=== PATIENT | female | born 1960 | race Caucasian/White ===

== ENCOUNTER 2019-12-04 13:03 | Emergency (ER) | payer BC, MEDICARE ==
[~2019-12-04] VITALS: Ht 160 cm; Wt 139.7 kg
[~2019-12-04 13:03] MED LIST: Z.1.LISINOPRIL-HCT1 PO
--- OUTSIDE RECORDS SUMMARY | 2019-12-04 13:05 | XMS REPORT | Encounter Summary ---
Author Organization Unknown Address [address] [place] [address] Phone [phone] Care Team Providers Care Microsoft Access Developer Name Role Phone Dr. Altaf Wilkerson 3 [phone] Sonya Hassan 82 [phone] Jeannie Schulte MD Facg 107 [phone] Viet Blackwell DPM 120 [phone] Dyllan Rodrigues 130 [phone] Reason for Visit Neuropathy; Bilateral ear pain/problem; sore throat; dizziness; headaches Instructions 1. Vertigo vertigo: care instructions meclizine 25 mg tablet 2. Neuropathy gabapentin 300 mg capsule meloxicam 15 mg tablet tramadol 50 mg tablet 3. Acute sinusitis Levaquin 500 mg tablet fluticasone propionate 50 mcg/actuatio n nasal spray,suspension Tessalon Perles 100 mg capsule 4. Acute bronchospasm ProAir HFA 90 mcg/actuation aerosol in haler 5. Immunization Adacel (Tdap Adolesn/Adult)(PF)2 Lf-(2 .5-5-3-5)-5 Lf/0.5 mL IM syringe Discussion Note: None recorded. Plan of Care Reminders Provider Appointments None recorded. Lab None recorded. Referral None recorded. Procedures None recorded. Surgeries None recorded. Imaging None recorded. Medications Name Start Date diclofenac 1 % topical gel appl,y three times a day. fluocinonide 0.05 % topical cream Apply 100 g 3 times a day by topical route for 15 days. fluticasone propionate 50 mcg/actuation nasal spray,suspension [place] 1 spray twice a day by intranasal route as directed for 14 days. gabapentin 300 mg capsule Take 1 capsule twice a day by oral route for 30 days. Iron (ferrous sulfate) 325 mg (65 mg iro n) tablet Take 1 tablet every day by oral route. Levaquin 500 mg tablet Take 1 tablet every 24 hours by oral route as directed for 10 days. lidocaine-prilocaine 2.5 %-2.5 % topical cream apply three times a day. meclizine 25 mg tablet Take 1 tablet as needed by oral route at bedtime for 14 days. meloxicam 15 mg tablet Take 1 tablet every day by oral route as needed for 90 days. ProAir HFA 90 mcg/actuation aerosol inha ler Inhale 2 puffs every 6-8 hours by inhalation route as needed for 10 days. Tessalon Perles 100 mg capsule Take 1 capsule 3 times a day by oral route as needed for 10 days. tramadol 50 mg tablet Take 1 tablet every day by oral route as needed for 30 days. Vitamin D3 1,000 unit chewable tablet Take 1 tablet every day by oral route. Women's Multivitamin ONE DAILY Medications Administered None recorded. Vitals Height Weight BMI Blood Pressure 5 ft 3.6 in 258.4 lbs 44.9 kg/m2 128/88 mm[Hg] Results Lab Results None recorded. Allergies Code Code System Name Reaction Severity Status Onset Penicillins Hives Moderate Active Problems Name Status Onset Date Source Neuropathy Active Procedures Date Name Performed by 07/22/2018 Orthopedic Surgery Information not avai lable 07/22/2017 Orthopedic Surgery Information not avai lable 07/22/2016 Gastrointestinal Surgery Information not available 07/22/2016 Orthopedic Surgery Information not avai lable 07/22/2015 Colonoscopy Information not avai lable 07/22/2013 Orthopedic Surgery Information not avai lable 07/22/2011 Orthopedic Surgery Information not avai lable 07/22/2008 Total Hysterectomy Information not avai lable 07/22/2008 Procedure on Bladder Information not lex ilable 07/22/2008 Cholecystectomy (Gall Bladder Removal) I nformation not available 07/22/2008 Other Information not avai lable 07/22/2007 Hernia Repair Information not avai lable 07/22/2006 Orthopedic Surgery Information not avai lable 07/22/1986 Tubal Ligation Information not avai lable 07/22/1969 Other Information not avai lable Vaccine List Vaccine Type influenza, recombinant, quadrIvalent,inj ectable, preservative free 04/01/20190.5 mL Tdap 05/27/20190.5 mL Social History Tobacco Smoking Status Never Smoker Past Encounters 05/27/2019 Vertigo; Neuropathy; Acute Sinusitis; Acute Bronchospasm; Immunization Altaf AEvita Wilkerson Mata, MD: [address] [place] [address], Ph. 05/21/2019 Morbid Obesity; Acute Otitis Media; Acute Laryngitis; Acute Bronchitis Ulises Kemp MD: [address] [place] [address], Ph. 04/29/2019 Neuropathy; Contracture of Joint of Toe; Osteoarthritis of Knee; Vaccine Refused by Patient; Body Mass Index 40+ - Severely Obese Altaf Mata MD: [address] [place] [address], Ph. History of Present Illness Chronic Pain Follow-up Reported By: Patient HPI: Analgesia: taking pain medic ation, percentage of pain relief: 60 %. Pain Severity: average pain: 5/10, worst pain: 9/10. ADL Improvements: physically functioning, able to maintain relationships, mood unaffected, sleep patterns undisturbed, overall function improved. Adverse Reactions: no nausea, no vomiting, no constipation, no itching, no mental cloudiness, no sweating, no fatigue, no drowsiness, no sexual dysfunction Note:<div>F/u in pain management. 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 Pain is stable with gabapentin, meloxicam and tramadol. </div><div>{{Yes|No}}</div><div> F/u on acute bronchitis. Pt completed zpak and medrol dose neha. However, she sti ll feels her ears clogged. Concomitantly, nasal congestion, sinus pressure, dizz iness (spinning sensation), wheezing and dry cough. Denies sob or chest pain< /div><div>
</div> Review of Systems:ROS as noted in the HPI Review of Systems None recorded. Physical Exam General Adult Exam (male) Reported By: Patient Constitutional: General Appearance: healthy- appearing, morbidly obese. Level of Distress: NAD Psychiatric: Insight: good judgement. Men latosha Status: active and alert, normal mood, normal affect. Orientation: to time, to place, to person. Memory: recent memory normal, remote memory normal Eyes: Lids and Conjunctivae: non-i njected, no discharge ENMT: Oropharynx: tonsils absent Neck: Neck: supple, trachea midlin e Lungs: Respiratory effort: no dyspn ea. Auscultation: breath sounds normal Cardiovascular: Heart Auscultation: RRR, nor mal S1, normal S2, no murmurs Abdomen: Inspection and Palpation: so ft, non-distended, no tenderness, no guarding Musculoskeletal:: Motor Strength and Tone: nor mal, normal tone. Joints, Bones, and Muscles: normal movement of all extremities, no malalignment; KNEES: Tenderness with palpation in the joint line. No erythema, swelling or warmth. Negative anterior and posterior drawer signs. Normal valgus and varus stress test. Extremities: no edema Neurologic: Cranial Nerves: grossly inta ct. Sensation: grossly intact. Reflexes: DTRs 2+ bilaterally throughout. Coordination and Cerebellum: no tremor Skin: Inspection and palpation: no rash, no lesions"
--- OUTSIDE RECORDS SUMMARY | 2019-12-04 13:05 | XMS REPORT | Encounter Summary ---
Author Organization Unknown Address [address] [place] [address] Phone [phone] Care Team Providers Care Director Sports Name Role Phone Dr. Altaf Wilkerson 3 [phone] Sonya Hassan 82 [phone] Jeannie Schulte MD Facg 107 [phone] Viet Blackwell DPM 120 [phone] Dyllan Rodrigues 130 [phone] Reason for Visit sinus symptoms; Left ear pain/problem; c ough Instructions 1. Morbid obesity learning about healthy weight 2. Acute otitis media 3. Acute laryngitis dexamethasone 4 mg/mL injection soluti on Medrol (Sreedhar) 4 mg tablets in a dose pa ck 4. Acute bronchitis Lincocin 300 mg/mL injection solution Zithromax Z-Sreedhar 250 mg tablet codeine 10 mg-guaifenesin 100 mg/5 mL oral liquid Discussion Note: None recorded. Plan of Care Patient Instructions meds as directed Reminders Provider Appointments Est Patient 05/27/2019 9:15AM Altaf Mata MD Lab None recorded. Referral None recorded. Procedures None recorded. Surgeries None recorded. Imaging None recorded. Medications Name Start Date codeine 10 mg-guaifenesin 100 mg/5 mL or al liquid Take 10 mL every 4 hours by oral route. dexamethasone 4 mg/mL injection solution Inject 2 mL as needed by intramuscular route. diclofenac 1 % topical gel appl,y three times a day. fluocinonide 0.05 % topical cream Apply 100 g 3 times a day by topical route for 15 days. gabapentin 300 mg capsule Take 1 capsule twice a day by oral route. Iron (ferrous sulfate) 325 mg (65 mg iro n) tablet Take 1 tablet every day by oral route. lidocaine-prilocaine 2.5 %-2.5 % topical cream apply three times a day. Lincocin 300 mg/mL injection solution Take 2 mL by injection route. Medrol (Sreedhar) 4 mg tablets in a dose pack as directed meloxicam 15 mg tablet Take 1 tablet every day by oral route as needed for 90 days. tramadol 50 mg tablet Take 1 tablet every day by oral route as needed. Vitamin D3 1,000 unit chewable tablet Take 1 tablet every day by oral route. Women's Multivitamin ONE DAILY Zithromax Z-Sreedhar 250 mg tablet TAKE 2 TABLETS (500 MG) BY ORAL ROUTE ONCE DAILY FOR 1 DAY THEN 1 TABLET (250 MG) BY ORAL ROUTE ONCE DAILY FOR 4 DAYS Medications Administered Name Date Lincocin 300 mg/mL injection solution Take 2 mL by injection route. 8980-30-36V99:34:00 dexamethasone 4 mg/mL injection solution Inject 2 mL as needed by intramuscular route. 3197-61-39W65:35:00 Vitals Height Weight BMI Blood Pressure 5 ft 3.6 in 262 lbs 45.5 kg/m2 124/86 mm[Hg] Results Lab Results None recorded. Allergies [...] recombinant, quadrIvalent,inj ectable, preservative free 04/01/20190.5 mL Social History Tobacco Smoking Status Never Smoker Past Encounters 05/21/2019 Morbid Obesity; Acute Otitis Media; Acute Laryngitis; Acute Bronchitis Ulises Kemp MD: [address] [place] [address], Ph. 04/29/2019 Neuropathy; Contracture of Joint of Toe; Osteoarthritis of Knee; Vaccine Refused by Patient; Body Mass Index 40+ - Severely Obese Altaf Patricia Mata MD: [address] [place] [address], Ph. History of Present Illness Note:5 d h/o hoarseness/L earache/clear mucoid productive cough-otc mucinex beneficial<div>h/o asthma -no meds 2 years</div> Review of Systems:ROS as noted in the HPI Review of Systems None recorded. Physical Exam Upper Respiratory Infection Exam Comprehensive Reported By: Patient Constitutional: General Appearance in no acu te distress; aphonia + Skin: Inspection and palpation: no rash, no lesions, no ulcer, good turgor, no jaundice Head: Sinuses no tenderness Eyes: Pupils EOM intact, PERRLA, c onjunctiva non-injected Ears: Right External auditory phuong l normal appearance, no obstruction, no erythema, no discharge. Left External auditory canal normal appearance, no obstruction, no erythema, no discharge. Right Tympanic membrane mobile with pneumatic otoscopy, pearly stratton, landmarks clear. Left Tympanic membrane: mobile with pneumatic otoscopy, landmarks clear, erythematous Nose: Nasal Skin: no lesion, no la cerations. Nasal Mucosa normal, pink and moist Oral Cavity/Mouth: Lips, teeth, gums normal lip s, normal gums. Oral Mucosa: normal, moist, no lesions. Palate: normal hard palate, normal soft palate. Tongue: normal tongue, no lesion, no edema. Tonsils: normal tonsils, no lesions. Posterior pharynx: erythema Lymph Nodes: Cervical no palpable lymph n ode enlargement, no submandibular adenopathy, no posterior cervical adenopathy, no anterior cervical adenopathy, no supraclavicular adenopathy Neck: Neck symmetrical, trachea mi dline Lungs: Respiratory effort unlabored . Auscultation no rales / crackles, no rhonchi, wheezing expiratory diffusely Cardiovascular System: Auscultation regular rate an d rhythm, no murmur, no rubs, no gallops. Observation/Palpation of peripheral vascular system no varicosities, carotid pulse normal, no edema
--- OUTSIDE RECORDS SUMMARY | 2019-12-04 13:05 | XMS REPORT | Encounter Summary ---
Author Organization Unknown Address [address] [place] [address] Phone [phone] Care Team Providers Care Agricultural Researcher Name Role Phone Dr. Altaf Wilkerson 3 [phone] Sonya Hassan 82 [phone] Jeannie Schulte MD Facg 107 [phone] Viet Blackwell DPM 120 [phone] Dyllan Rodrigues 130 [phone] Reason for Visit Neuropathy; Bilateral ear pain/problem; [...] days. fluticasone propionate 50 mcg/actuation nasal spray,suspension [place] 1 spray twice a day by intranasal [...] Immunization Altaf AEvita Wilkerson Mata, MD: [address] [place] [address], Ph. 05/21/2019 Morbid Obesity; Acute Otitis Media; Acute Laryngitis; Acute Bronchitis Ulises Kemp MD: [address] [place] [address], Ph. 04/29/2019 Neuropathy; Contracture of Joint of Toe; Osteoarthritis of Knee; Vaccine Refused by Patient; Body Mass Index 40+ - Severely Obese Altfa Mata MD: [address] [place] [address], Ph. History of Present Illness Chronic Pain [...] fatigue, no drowsiness, no sexual dysfunction Note:<div>F/u on pain management. Hx of neuropathy in left [...]
--- OUTSIDE RECORDS SUMMARY | 2019-12-04 13:05 | XMS REPORT | Encounter Summary ---
Author Organization Unknown Address [address] [place] [address] Phone [phone] Care Team Providers Care Carbon Printer Name Role Phone Dr. Altaf Wilkerson 3 [phone] Sonya S Ahmed 82 [phone] Jeannie Schulte MD Facg 107 [phone] Viet Blackwell DPM 120 [phone] Dyllan Rodrigues 130 [phone] Reason for Visit neuropathy; Annual Depression Screening; AWV Annual Wellness Visit Female (VFP); Advance Care Plan; other - see typed reason Instructions 1. Adult health examination visual acuity 2. Depression screening learning about depression 3. Neuropathy gabapentin 300 mg capsule tramadol 50 mg tablet learning about healthy weight CBC w/ auto diff 4. Screening for malignant neoplasm of b reast MAMMO, screening, digital, bilateral - *Please call the patient and schedule* 5. Morbid obesity learning about healthy weight CMP, serum or plasma lipid panel, serum TSH, serum or plasma 6. Screening for malignant neoplasm of c olon 7. Influenza vaccination Flublok Quad [id number] (PF) 180 mcg (4 5 mcg x 4)/0.5 mL IM syringe 8. Immunization refused 9. Contracture of joint of toe podiatry referral - PLEASE SEND BACK C ONSULT NOTES TO [phone] 10. Heart valve disorder cardiology referral - *Please call the patient and make an appointment* PLEASE SEND BACK CONSULT NOTES TO [phone] 11. Osteoarthritis of knee orthopedic referral - *Please call the patient and make an appointment* PLEASE SEND BACK CONSULT NOTES TO [phone] Discussion Note: None recorded. Plan of Care Patient Instructions It was good to see you in the office tod ay for your Medicare Annual Wellness Visit. You have been provided some information on healthy nutrition, including a diet rich in fruits and vegetables, minimizing simple carbohydrates, salt, and saturated fats. I want to encourage regular cardiovascular exercise such as walking at least 30 minutes daily, 5 times per week. Please remember to schedule any preventive health measures that we talked about today. You have also been provided education on fall prevention and community- based lifestyle interventions to help reduce health risks and promote healthy living in your Annual Wellness folder. Screening Recommendations 1. Vaccines Pneumonia: Recommended today Influenza: Ordered 2. Mammography Screening: Ordered 3. Colorectal Cancer Screening: Colonoscopy (every 10 years) Next Screening 4. Annual Depression Screening 5. Annual Alcohol Screening 6. Annual Fall Risk Screening 7. Annual Health Risk Assessment It was good to see you in the office today for your Medicare Annual Wellness Visit. You have been provided some information on healthy nutrition, including a diet rich in fruits and vegetables, minimizing simple carbohydrates, salt, and saturated fats. I want to encourage regular cardiovascular exercise such as walking at least 30 minutes daily, 5 times per week. Please remember to schedule any preventive health measures that we talked about today. You have also been provided education on fall prevention and community- based lifestyle interventions to help reduce health risks and promote healthy living in your Annual Wellness folder. Screening Reminders Provider Appointments Est Patient 04/29/2019 9:00AM Altaf Mata MD Return to Office on or around 05/01/2019 Altaf Mata MD Lab CMP, Serum or Plasma 04/01/[address] [facility] Lipid Panel, Serum 04/01/2019 [facility] TSH, Serum or Plasma 04/01/[address] [facility] CBC W/ Auto Diff 04/01/2019 [facility] Referral Podiatry Referral 04/01/2019 Viet benjamin DPDutch Cardiology Referral 04/01/2019 Tommie siegel MD Orthopedic Referral 04/01/2019 Jaleel clark MD Procedures None recorded. Surgeries None recorded. Imaging MAMMO, Screening, Digital, Bilateral 04/01/2019 [facility] Medications Name Start Date gabapentin 300 mg capsule Take 1 capsule twice a day by oral route. Iron (ferrous sulfate) 325 mg (65 mg iro n) tablet Take 1 tablet every day by oral route. tramadol 50 mg tablet Take 1 tablet every day by oral route as needed. Vitamin D3 1,000 unit chewable tablet Take 1 tablet every day by oral route. Women's Multivitamin ONE DAILY Medications Administered None recorded. Vitals Height Weight BMI Blood Pressure 5 ft 3.6 in 259 lbs 45 kg/m2 122/84 mm[Hg] Lab Results Date Name Specimen Result Interpretation Description Value Range Status Address Visual Acuity R Eye Corrected 20/20 [facility]: [address] [facility] L Eye Corrected 20/20 [facility]: [address] [facility] Allergies Code Code System Name Reaction Severity [...] lable 07/22/1968 Other Information not avai lable 04/01/2019 MAMMO, Screening, Digital, Bilateral [facility] [address] [place] [address] (Work [address]) Vaccine List Vaccine Type influenza, recombinant, quadrIvalent,inj ectable, preservative free 04/01/20190.5 mL Social History Tobacco Smoking Status Never Smoker Past Encounters 04/01/2019 Adult Health Examination; Depression Screening; Neuropathy; Screening for Malignant Neoplasm of Breast; Morbid Obesity; Screening for Malignant Neoplasm of Colon; Influenza Vaccination; Immunization Refused; Contracture of Joint of Toe; Heart Valve Disorder; Osteoarthritis of Knee Altaf Mata MD: [address] [place] [address], Ph. History of Present Illness Mini Cog Reported By: Patient Functional Ability: Personal/Social/ Draw a cloc k and write in the numbers in the correct place, and set the time to 10 minutes after 11 o'clock was completed correctly? Yes, 3 word recall: Your nurse or doctor will ask you to remember 3 words. In 5 minutes, they will ask you to repeat them. Patient recalled 3 words Opioid Use Assessment Reported By: Patient Opioid Use Assessment:: Current Use of Opioids : Tra madol (Ultram). 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 Pain is stable with gabapentin and tramadol. Intensity: 5-8/10.
{{Yes|No}}</div> Review of Systems Comprehensive General Adult ROS Reported By: Patient Constitutional: Constitutional: no fever Eyes: Eyes: no vision change Cardiovascular: Cardiovascular: no chest timbo n, no palpitations, no lightheadedness Respiratory: Respiratory: no cough, no wh eezing, no shortness of breath Gastrointestinal: Gastrointestinal: no abdomin al pain, no nausea, no vomiting, no constipation, no diarrhea Musculoskeletal: Musculoskeletal: no muscle a ches, no swelling in the extremities, arthralgias/joint pain Neurologic: Neurologic: no loss of consc iousness, no headaches, numbness Psychiatric: Psych: no depression, no alc ohol abuse, no anxiety, no suicidal thoughts Physical Exam General Adult Exam (male) Reported By: Patient Constitutional: General Appearance: healthy- appearing, morbidly obese. Level of Distress: NAD Psychiatric: Insight: good judgement. Men latosha Status: active and alert, normal mood, normal affect. Orientation: to time, to place, to person. Memory: recent memory normal, remote memory normal Eyes: Lids and Conjunctivae: non-i njected, no discharge Neck: Neck: supple, trachea midlin e Lungs: Auscultation: breath sounds normal Cardiovascular: Heart Auscultation: [...] Cranial Nerves: grossly inta ct. Sensation: grossly intact, monofilament test intact. Coordination and Cerebellum: no tremor Skin: Inspection and palpation: no rash, no lesions"
--- OUTSIDE RECORDS SUMMARY | 2019-12-04 13:05 | XMS REPORT ---
Author Author [facility] t Organization [facility] Address [address] [place] [address] Phone Unavailable Care Team Providers Care Technical Photographer Name Role Phone Unavailable Unavailable Payers Payer Name Policy Type Policy Number Effective Date Expiration Date S ource Problems Condition Name Condition Details Condition Category Status Onset Date Resolution Date Last Treatment Date Treating Clinician Comments Source Neuropathy Neuropathy Problem Active [facility] Allergies, Adverse Reactions, Alerts Allergy Name Allergy Type Status Severity Reaction(s) Onset Date Inacti ve Date Treating Clinician Comments Source Penicillins DA Active SV 2015-04-28 00:00:00 [facility] PENICILLINS Allergy to substance Active Moderate Hives [facility] Social History Smoking Status Start Date Stop Date Source Never Smoker [facility] ractice Medications Ordered Medication Name Filled Medication Name Start Date Stop Da te Current Medication? Ordering Clinician Indication Dosage Frequency Signature (SIG) Comments Components Source diclofenac 1 % topical gel appl,y three times a day. d iclofenac 1 % topical gel appl,y three times a day. No diclofenac 1 % topical gel appl,y three times a day. [facility] Pract ice fluocinonide 0.05 % topical cream Apply 100 g 3 times a day by topical route for 15 days. fluocinonide 0.05 % topical cream Apply 100 g 3 times a day by topical route for 15 days. No 100g TID fluoc inonide 0.05 % topical cream Apply 100 g 3 times a day by topical route for 15 days. [facility] fluticasone propionate 50 mcg/actuation nasal spray,suspension [place] 1 spray twice a day by intranasal route as directed for 14 days. fluticasone propionate 50 mcg/actuation nasal spray,suspension [place] 1 spray twice a day by intranasal route as directed for 14 days. No 1spray(s) BID fluticasone propionate 50 mcg/actuation nasal spray,suspension [place] 1 spray twice a day by intranasal route as directed for 14 days. [facility] gabapentin 300 mg capsule Take 1 capsule twice a day b y oral route for 30 days. gabapentin 300 mg capsule Take 1 capsule twice a day by oral route for 30 days. No 1capsule(s) BID gabapent in 300 mg capsule Take 1 capsule twice a day by oral route for 30 days. [facility] Iron (ferrous sulfate) 325 mg (65 mg iro n) tablet Take 1 tablet every day by oral route. Iron (ferrous sulfate) 325 mg (65 mg iro n) tablet Take 1 tablet every day by oral route. No 1 Q1D Iron (ferrous sulfate) 325 mg (65 mg iron) tablet Take 1 tablet every day by oral route. [facility] Levaquin 500 mg tablet Take 1 tablet viet ry 24 hours by oral route as directed for 10 days. Levaquin 500 mg tablet Take 1 tablet viet ry 24 hours by oral route as directed for 10 days. No 1 Q24H Levaquin 500 mg tablet Take 1 tablet every 24 hours by oral route as directed for 10 days. [facility] lidocaine-prilocaine 2.5 %-2.5 % topical cream apply t hree times a day. lidocaine-prilocaine 2.5 %-2.5 % topical cream apply three times a day. No lidocaine-prilocaine 2.5 %-2.5 % top ical cream apply three times a day. [facility] meclizine 25 mg tablet Take 1 tablet as needed by oral route at bedtime for 14 days. meclizine 25 mg tablet Take 1 tablet as needed by oral route at bedtime for 14 days. No 1 meclizine 2 5 mg tablet Take 1 tablet as needed by oral route at bedtime for 14 days. [facility] meloxicam 15 mg tablet Take 1 tablet viet ry day by oral route as needed for 90 days. meloxicam 15 mg tablet Take 1 tablet viet ry day by oral route as needed for 90 days. No 1 Q1D meloxicam 15 mg tablet Take 1 tablet every day by oral route as needed for 90 days. [facility] ProAir HFA 90 mcg/actuation aerosol inha ler Inhale 2 puffs every 6-8 hours by inhalation route as needed for 10 days. ProAir HFA 90 mcg/actuation aerosol inhaler Inhale 2 puffs every 6-8 hours by inhalation route as needed for 10 days. No 2puff(s) Q7H ProAir HFA 90 m cg/actuation aerosol inhaler Inhale 2 puffs every 6-8 hours by inhalation route as needed for 10 days. [facility] Tessalon Perles 100 mg capsule Take 1 ca psule 3 times a day by oral route as needed for 10 days. Tessalon Perles 100 mg capsule Take 1 ca psule 3 times a day by oral route as needed for 10 days. No 1ca psule(s) TID Tessalon Perles 100 mg capsule Take 1 capsule 3 times a day by oral route as needed for 10 days. [facility] ice tramadol 50 mg tablet Take 1 tablet ever y day by oral route as needed for 30 days. tramadol 50 mg tablet Take 1 tablet ever y day by oral route as needed for 30 days. No 1 Q1D tramadol 50 mg tablet Take 1 tablet every day by oral route as needed for 30 days. [facility] Vitamin D3 1,000 unit chewable tablet Take 1 tablet ev doroteo day by oral route. Vitamin D3 1,000 unit chewable tablet Take 1 tablet every day by oral route. No 1 Q1D Vitamin D3 1,0 00 unit chewable tablet Take 1 tablet every day [facility] route. [facility] Multiv[facility] ONE DAILY Women's Multivitamin ONE DAILY No Women's Multivitamin ONE DAILY [facility] Immunizations Ordered Immunization Name Filled Immunization Name Date Status Comments Source Tdap Tdap 2019-05-27 11:48:00 Completed [facility] influenza, recombinant, quadrIvalent,injectable, prese rvative free influenza, recombinant, quadrIvalent,injectable, preservative free 2019-04-01 10:32:00 Completed [facility] Vital Signs Vital Name Observation Time Observation Value Comments Source BP Diastolic 2019-05-27 00:00:00 88 mm[Hg] [facility] Height 2019-05-27 00:00:00 63.6 [in_i] [facility] BMI (Body Mass Index) 2019-05-27 00:00:00 44.9 kg/m2 [facility] BP Systolic 2019-05-27 00:00:00 128 mm[Hg] [facility] Body Weight 2019-05-27 00:00:00 258.4 [lb_av] [facility] BP Diastolic 2019-05-21 00:00:00 86 mm[Hg] [facility] Height 2019-05-21 00:00:00 63.6 [in_i] [facility] BMI (Body Mass Index) 2019-05-21 00:00:00 45.5 kg/m2 [facility] BP Systolic 2019-05-21 00:00:00 124 mm[Hg] [facility] Body Weight 2019-05-21 00:00:00 262 [lb_av] [facility] BP Diastolic 2019-04-29 00:00:00 82 mm[Hg] [facility] Height 2019-04-29 00:00:00 63.6 [in_i] [facility] BMI (Body Mass Index) 2019-04-29 00:00:00 44.5 kg/m2 [facility] BP Systolic 2019-04-29 00:00:00 128 mm[Hg] [facility] Body Weight 2019-04-29 00:00:00 256.2 [lb_av] [facility] BP Diastolic 2019-04-01 00:00:00 84 mm[Hg] [facility] Height 2019-04-01 00:00:00 63.6 [in_i] [facility] BMI (Body Mass Index) 2019-04-01 00:00:00 45 kg/m2 [facility] BP Systolic 2019-04-01 00:00:00 122 mm[Hg] [facility] Body Weight 2019-04-01 00:00:00 259 [lb_av] [facility] Procedures Procedure Date / Time Performed Performing Clinician Sourc e MAMMO, screening, digital, bilateral 2019-04-01 00:00:00 [facility] Orthopedic Surgery 2018-07-22 00:00:00 [facility] Orthopedic Surgery 2017-07-22 00:00:00 [facility] Gastrointestinal Surgery 2016-07-22 00:00:00 [facility] Orthopedic Surgery 2016-07-22 00:00:00 [facility] Colonoscopy 2015-07-22 00:00:00 [facility] Orth[facility] 2013-07-22 00:00:00 [facility] Orthopedic Surgery 2011-07-22 00:00:00 [facility] Total Hysterectomy 2008-07-22 00:00:00 [facility] amil[facility] Procedure on Bladder 2008-07-22 00:00:00 [facility] Cholecystectomy (Gall Bladder Removal) 2008-07-22 00:00:00 [facility] Other 2008-07-22 00:00:00 [facility] Hernia Repair 2007-07-22 [facility] 2006-07-22 00:00:00 [facility] barcenas [facility] Tubal Ligation 1986-07-22 00:00:00 [facility] Other 1969-07-22 00:00:00 [facility] Practice Encounters Start Date/Time End Date/Time Encounter Type [facility] Care Department Encounter ID Source 2019-05-27 00:00:00 2019-05-27 00:00:00 Altaf longoria MD: [address] [place] [address], Ph. [facility] [id number] [facility] 2019-05-21 00:00:00 2019-05-21 00:00:00 Ulises Kemp MD: [address] [place] [address], Ph. [facility] [id number] [facility] 2019-04-29 00:00:00 2019-04-29 00:00:00 Altaf longoria MD: [address] [place] [address], Ph. [facility] [id number] [facility] 2019-04-01 00:00:00 2019-04-01 00:00:00 Altaf longoria MD: [address] [place] [address], Ph. [facility] [id number] [facility] Results Test Description Test Time Test Comments Results Result Comments Source SCR MAMM BILATERAL JULIET CAD DIGITAL 2019-04-21 08:59:04 - SCR MAMM BILATERAL JULIET CAD DIGITALBILATERAL DIGITAL SCREENING MAMMOGRAM 3D/2D WITH CAD: 04/18/2019CLINICAL: Asymptomatic. Digital breast tomosynthesis was performed in addition to routine CC and MLO views. Current mammographic images were evaluated by either a [employer] M-Vu or a [email or web address] ImageChecker CAD (computer aided detection system). Comparison is made to exams dated 03/26/2018 mammogram, 2014 mammogram - [facility], and 07/02/2008 mammogram - [facility]. The tissue of both breasts is predominantly fatty. There are benign calcifications in both breasts. No suspicious mass, architectural distortion, malignant type calcification, or lymph node abnormality detected. Breast architecture is stable compared to prior exams.IMPRESSION: BENIGNThere is no mammographic evidence of malignancy. Resume annual screening mammography in one year. Abiel Hyde M.D. ss/penrad:04/21/2019 08:59:04 Ukrainian Folk Arts Instructor: Faye MCINTOSH, [facility] sent: BIRADS 1-2 Normal Mammogram BI-RADS: 2 Benign
--- OUTSIDE RECORDS SUMMARY | 2019-12-04 13:05 | XMS REPORT | Encounter Summary ---
Author Organization Unknown Address [address] [place] [address] Phone [phone] Care Team Providers Care Sorter Packer Name Role Phone Dr. Altaf Wilkerson 3 [phone] Sonya S med 82 [phone] Jeannie Schulte MD Facg 107 [phone] Viet Blackwell DPM 120 [phone] Dyllan Rodrigues 130 [phone] Reason for Visit lab follow-up; other - see typed reason Instructions 1. Neuropathy gabapentin 300 mg capsule tramadol 50 mg tablet meloxicam 15 mg tablet 2. Contracture of joint of toe 3. Osteoarthritis of knee 4. Vaccine refused by patient 5. Body mass index 40+ - severely obese body mass index: care instructions learning about healthy weight Discussion Note: None recorded. Plan of Care Reminders Provider Appointments Est Patient 05/27/2019 9:15AM [...] topical cream apply three times a day. meloxicam 15 mg tablet Take 1 tablet every day by oral route as needed for 90 days. tramadol 50 mg tablet Take 1 tablet every day by oral route as needed. Vitamin D3 1,000 unit chewable tablet Take 1 tablet every day by oral route. Women's Multivitamin ONE DAILY Medications Administered None recorded. Vitals Height Weight BMI Blood Pressure 5 ft 3.6 in 256.2 lbs 44.5 kg/m2 128/82 mm[Hg] Results Lab Results Date Name Specimen Result Interpretation Description Value Range Status Address 04/01/2019 CBC W/ Auto Diff Wbc 7.30 x10*3/L 3.9 8-10.04 x10*3/L Final [facility] Laboratory: [address] [place] Rbc 5.04 10*12/L 3.93-5.22 10*12/L Final [facility]: [address] [place] Hemoglobin 15.40 g/dL 11.20-15.70 g/ dL Final [facility]: [address] [place] High Hematocrit 47.6 % 34.1-44.9 % Final [facility]: [address] [place] Mcv 94.4 fL 80.0-100.0 fL Final [facility] [address] [facility] 30.6 pg 25.6-32.2 pg Final [facility] Laboratory: [address] [place] Mchc 32.4 g/dL 32.2-35.5 g/dL Final [facility]: [address] [place] RDW-SD 43.3 fL 36.4-46.3 fL Final [facility]: [address] [facility] [facility] Platelet Count 262.0 k/uL 182.0-369. 0 k/uL Final [facility]: [address] [place] Mpv 10.1 fL 7.5-11.5 fL Final [facility] [address] [facility] Neut% 52.5 % 34.0-71.1 % Final [facility] [address] [facility] [facility] Lymph% 37.1 % 19.3-51.7 % Final [facility]: [address] [facility] Mon% 7.8 % 4.7-12.5 % Final [facility] [address] [facility] Eos% 2.2 % 0.7-5.8 % Final [facility] [address] [facility] Baso% 0.4 % 0.1-1.2 % Final [facility] Laboratory: [address] [facility], [place] Neut# 3.8 x10*3/L 1.6-6.1 x10*3/L Final [facility]: [address] [place] [address] Lymph# 2.7 x10*3/L 1.2-3.7 x10*3/L Final [facility]: [address] [facility] [place] Mon# 0.6 x10*3/L 0.2-0.9 x10*3/L [facility] Laboratory: [address] [place] [address], [place] Eos# 0.16 x10*3/L 0.04-0.36 x10*3/ L Final [facility]: [address] [place] [address] Baso# 0.03 x10*3/L 0.01-0.08 x10*3/ L Final [facility]: [address] [place] [address] 04/01/2019 CMP, Serum or Plasma Alt 15 U/L 0-55 U /L Final [facility]: [address] Ast 21 U/L 5-34 U/L Final [facility]: [address] Bun 17.8 mg/dL 9.8-25.0 mg/dL Final [facility]: [address] Alk Phos 88 unit/L 40-150 unit/L Fin [facility] Laboratory: [address] Glucose 86 mg/dL 70-99 mg/dL Final [facility]: [address] Albumin 3.9 g/dL 3.4-5.1 g/dL Final [facility]: [address] Creatinine 0.84 mg/dL 0.57-1.11 mg/d L Final [facility]: [address] eGFR Non- >60 mL/mi n/1.73m2 Final [facility]: [address] Total Bilirubin 1.1 mg/dL 0.2-1.2 mg /dL Final [facility]: [address] eGFR - >60 mL/min/1 .73m2 [facility] Laboratory: [address] [place] [address], [place] Sodium 143 mEq/L 135-145 mEq/L [facility] Laboratory: [address] [place] [address], [place] Potassium 4.4 mEq/L 3.5-5.1 mEq/L [facility] Laboratory: [address] [place] [address], [place] Chloride 109 mmol/L 98-110 mmol/L [facility] Laboratory: [address] [place] [address], [place] Total Protein 6.9 g/dL 6.1-8.2 g/dL [facility] Laboratory: [address] Calcium 9.5 mg/dL 8.6-10.4 mg/dL [facility] Laboratory: [address] [place] [address], [place] Co2 27.0 mmol/L 20.0-32.0 mmol/L [facility] Laboratory: [address] Anion Gap 7 calc Final [facility] Laboratory: [address] [place] [address], [place] 04/01/2019 Lipid Panel, Serum Low Hdl 48 mg/dL [facility] Laboratory: [address] Triglyceride 143 mg/dL 0-150 mg/dL [facility] Laboratory: [address] VLDL (Calculated) 29 mg/dL [facility] Laboratory: [address] cholesterol/HDL Ratio 3.9 mg/dL [facility] Laboratory: [address] non-HDL Cholesterol (Calculated) 139 mg/dL 0-160 mg/dL [facility] Laboratory: [address] Cholesterol 187 mg/dL 0-200 mg/dL [facility] Laboratory: [address] LDL (Calculated) 110 mg/dL 0-130 mg/ dL [facility] Laboratory: [address] [place] [address], [place] 04/01/2019 TSH, Serum or Plasma Tsh 0.685 uI U/mL 0.350-4.940 uIU/mL [facility] Laboratory: [address] [facility] [address], [place] Visual Acuity R Eye Corrected 20/20 [facility]: [address] [facility] L Eye Corrected 20/20 [facility]: [address] [facility] Allergies Code Code System Name Reaction Severity [...] lable 04/01/2019 MAMMO, Screening, Digital, Bilateral [facility] [address] [facility] [address] [place] [address] (Work Place) Vaccine List Vaccine Type influenza, recombinant, quadrIvalent,inj ectable, preservative free 04/01/20190.5 mL Social History Tobacco Smoking Status Never Smoker Past Encounters 04/29/2019 Neuropathy; Contracture of Joint of Toe; Osteoarthritis of Knee; Vaccine Refused by Patient; Body Mass Index 40+ - Severely Obese Altaf Mata MD: [address] [place] [id number], Ph. 04/01/2019 Adult Health Examination; Depression Screening; Neuropathy; Screening for Malignant Neoplasm of Breast; Morbid Obesity; Screening for Malignant Neoplasm of Colon; Influenza Vaccination; Immunization Refused; Contracture of Joint of Toe; Heart Valve Disorder; Osteoarthritis of Knee Altaf Mata MD: [address] [place] [address], Ph. History of Present Illness Chronic Pain [...] no fatigue, no drowsiness, no sexual dysfunction Opioid Use Assessment Reported By: Patient Opioid Use Assessment:: Current Use of Opioids : Tra madol (Ultram). Has the patient tried other pain management modalities: yes Note:<div>F/u on pain management. 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 Pain is stable with gabapentin and tramadol. </div><div>{{Yes|No}}</div> Review of Systems Comprehensive General Adult ROS Reported By: Patient Cardiovascular: Cardiovascular: no chest timbo n, no [...] Distress: NAD Psychiatric: Insight: good judgement. Men ltaosha Status: active and alert, normal mood, normal [...]
--- OUTSIDE RECORDS SUMMARY | 2019-12-04 13:06 | XMS REPORT | Encounter Summary ---
Author Organization Unknown Address [address] [place] [address] Phone [phone] Care Team Providers Care Creative Arts Music Therapist Name Role Phone Dr. Altaf Wilkerson 3 [phone] Sonya Hassan 82 [phone] Jeannie Schulte MD Facg 107 [phone] Viet Blackwell DPM 120 [phone] Dyllan Rodrigues 130 [phone] Reason for Visit Neuropathy; Bilateral ear pain/problem; [...] days. fluticasone propionate 50 mcg/actuation nasal spray,suspension [place] 1 spray twice a day by intranasal [...] Immunization Altaf AEvita Wilkerson Mata, MD: [address] [place] [address], Ph. 05/21/2019 Morbid Obesity; Acute Otitis Media; Acute Laryngitis; Acute Bronchitis Ulises Kemp MD: [address] [place] [address], Ph. 04/29/2019 Neuropathy; Contracture of Joint of Toe; Osteoarthritis of Knee; Vaccine Refused by Patient; Body Mass Index 40+ - Severely Obese Altaf Mata MD: [address] [place] [address], Ph. History of Present Illness Chronic Pain [...] and Conjunctivae: non-i njected, no discharge ENMT: Ears: TM bulging. Nose: sinu s tenderness, nasal discharge--purulent. Oropharynx: no exudates, erythema, tonsils absent Neck: Neck: supple, trachea midlin e. Lymph Nodes: no cervical LAD Lungs: Respiratory effort: no dyspn ea. Auscultation: [...]
[2019-12-04] MEDS ORDERED: ACETAMINOPHEN 325 MG TAB PO ONE (14:00)
[2019-12-04 14:41] LABS: STREPTOCOCCUS GRP A ANTIGEN NEGATIVE (NEGATIVE)
[2019-12-04 14:44] LABS: INFLUENZAE A&B ANTIGEN (RAPID) NEGATIVE (NEGATIVE)
[2019-12-04 15:05] LABS: BACTERIA,URINE MODERATE /HPF; BILIRUBIN,URINE NEGATIVE (NEGATIVE); CLARITY,URINE CLOUDY (CLEAR); COLOR,URINE YELLOW (YELLOW); EPITHELIAL CELLS,URINE FEW /LPF; KETONES,URINE TRACE (NEGATIVE); LEUKOCYTE ESTERASE ,URINE MODERATE (NEGATIVE); NITRITE,URINE POSITIVE (NEGATIVE); PROTEIN,URINE DIPSTICK 1+ (NEGATIVE); RBC,URINE 0-5 /HPF (0-5); URINE UROBILINOGEN 1 mg/dL (0.2 - 1); WBC,URINE (MAN) >50 /HPF (0-5)
--- NOTE | 2019-12-04 15:28 | Emergency Department Note ---
History of Present Illnes History of Present Illness Chief Complaint: General Medicine Complaints History of Present Illness This is a 59 year old female .STATES THAT SHE HAS BEEN HAVING FEVER FOR THE LAST FEW DAYS, HAD BURNING WITH URINATION A WEEK AGO X2 INSTANCES AND THEN RESOLVED ALSO HERE FOR A PAIN ON THE INSIDE OF THE LEFT THIGH THAT SHE FEELS IS A CLOT. sent to ed for eval from pcp to r/o dvt uri uti Historian: Patient Arrival Mode: Car Cloth Bleaching Range Tender Required: No Onset (how long ago): day(s) (several dys ) Location: c/o pain to left inguinal medial thigh Radiation: non-radiation Severity: moderate Onset quality: sudden Duration (how long): day(s) (several days ) Timing of current episode: constant Progression: worsening Context: recent illness, other (c/o uri sx cough fever sinus congstion for several days ) Relieving factors: none Exacerbating factors: none Associated symptoms: fever/chills Treatments prior to arrival: antipyretic, other (last dose tylenol 730 am ) Past Medical/Family History Physician Review I have reviewed the patient's past medical and family history. Any updates have been documented here. Past Medical History * None Other Surgery * shoulder surgery, lap band surgery, hernia surgery Past Medical History Recent Fever: Yes Clinical Suspicion of Infectio: Yes New/Unexplained Change in Ment: No Past Medical History: None Other Surgery: shoulder surgery, lap band surgery, hernia surgery Social History Smoking Cessation: Never Smoker Alcohol Use: None Any Illegal Drug Use: No TB Exposure/Symptoms: No Physically hurt or threatened: No Family History Family history of heart diseas: No Other family history brother from blood clot to leg Other Any Pre-Existing Lines (PICC,: No Review of Systems Review of Systems Constitutional: chills, fever EENTM: nose congestion, throat pain (scratchy throat ) Cardiovascular: no symptoms Respiratory: cough Gastrointestinal: no symptoms Genitourinary: dysuria Musculoskeletal: no symptoms Neurological: no symptoms Psychological: no symptoms Endocrine: no symptoms Hematological/Lymphatic: no symptoms Review of other systems All other systems reviewed and negative. pt c.o left inner upper thigh inguinal area ttp pt and pt's pcp concern for dvt sent to ed for eval Physical Exam Related Data Allergies: Uncoded Allergies: BERRIES, COCONUT (Allergy, Mild, rash and hives, 12/08/10) PCN (Allergy, Unknown, rash, 12/04/19) Triage Vital Signs Vital Signs Date Time Temp Pulse Resp B/P (MAP) Pulse Ox O2 Delivery O2 Flow Rate FiO2 12/04/19 13:41 102.5 92 16 123/80 95 Vital signs reviewed: Yes Physical Exam CONSTITUTIONAL Constitutional: well-developed, well-nourished, obese HENT HENT: normocephalic, atraumatic, nose normal, erythema (throat mild redness ); tonsillar excudate HENT L/R: left ext ear normal, right ext ear normal EYES Eyes: conjunctivae normal, EOM normal NECK Neck: ROM normal PULMONARY Pulmonary: effort normal, breath sounds normal CARDIOVASCULAR Cardiovascular: regular rhythm, capillary refill normal, normal rate GASTROINTESTINAL Abdominal: soft, nontender GENITOURINARY Genitourinary: exam deferred, other (c/o dysuria several days ago - pt&pt's pcp concern pt may have uti) SKIN MUSCULOSKELETAL Musculoskeletal: ROM normal NEUROLOGICAL Neurological: alert, oriented x 3, no gross motor or sensory deficits PSYCHOLOGICAL Psychological: mood/affect normal, judgement normal Results Laboratory Laboratory Laboratory Tests Test 12/04/19 14:00 12/04/19 13:40 Influenza Virus Types A,B Antigen Negative (NEGATIVE) Group A Streptococcus Screen Negative (NEGATIVE) Urine Color Yellow (YELLOW) Urine Clarity Cloudy (CLEAR) Urine pH 6 (5 - 7) Urine Specific Cocoa 1.025 (1.010-1.025) Urine Protein 1+ (NEGATIVE) Urine Glucose (UA) Negative (NEGATIVE) Urine Ketones Trace (NEGATIVE) Urine Blood Moderate (NEGATIVE) Urine Nitrite Positive (NEGATIVE) Urine Bilirubin Negative (NEGATIVE) Urine Urobilinogen 1 mg/dL (0.2 - 1) Urine Leukocyte Esterase Moderate (NEGATIVE) Urine RBC 0-5 /HPF (0-5) Urine WBC >50 /HPF (0-5) Urine Epithelial Cells Few /LPF (NONE) Urine Bacteria Moderate /HPF (NONE) Imaging Imaging results reviewed: Yes Impressions IMPRESSION: No focal pneumonia or pulmonary edema. Signed by: Jesi Navarro MD on 12/04/2019 4:24 PM Dictated By: JESI NAVARRO MD [id number] Transcribed By: LARS on 12/04/191623 COPY TO: CARLOS GRANDE CUSTOMER SOLUTIONS COORDINATOR~ Imaging Comments us left leg neg for DVT Critical Care Time Subsequent provider I assumed direction of critical care for this patient from another provider of my specialty. Assessment & Plan Assessment & Plan Problems: (1) Upper respiratory infection (2) Urinary tract infection (3) Fever Assessment & Plan 1. tylenol and motrin as needed for fever 2. increase oral fluids 3. return to ed as needed 4. follow up with pcp in 1-2 days without fail 5. rx omnicef Depart Disposition: HOME, SELF-CARE Last Vital Signs Date Time Temp Pulse Resp B/P (MAP) Pulse Ox O2 Delivery O2 Flow Rate FiO2 12/04/19 13:41 102.5 92 16 123/80 95 Home Meds Reported Medications Lisinopril/Hydrochlorothiazide (Lisinopril-Hctz 20-12.5 Mg Tab) 1 Each Tablet, 1 PO DAILY 12/08/10 Medications in the ED CARLOS Ovalles NP December 04, 2019 13:59
[2019-12-04] MEDS ORDERED: CEFTRIAXONE SOD 1 GM VIAL IM SCH (15:50)
--- NOTE | 2019-12-04 16:27 | Diagnostic Imaging Report ---
EXAMINATION: CHEST 2 VIEWS INDICATION: Fever, urinary tract infection COMPARISON: None FINDINGS: LINES/TUBES:None LUNGS:The lungs are well-inflated. No focal consolidation or pulmonary edema. PLEURA:No pleural effusion or pneumothorax. MEDIASTINUM:The cardiomediastinal silhouette appears normal in size and shape. BONES/SOFT TISSUES:No acute osseous injury. ABDOMEN:No free air under the diaphragm. IMPRESSION: No focal pneumonia or pulmonary edema. Signed by: Janeth Navarro MD on 12/04/2019 4:24 PM
== END 2019-12-04 16:54 | disposition home or self-care (01) ==
LOC: ER 13:03
DX: R50.9 Fever, unspecified (principal); J06.9 Acute upper respiratory infection, unspecified; R30.0 Dysuria; N39.0 Urinary tract infection, site not specified; M79.652 Pain in left thigh
CPT/HCPCS: 71046; 81001; 83518; 87070; 87086; 87186; 87400; 93971; 99284; J0696

== ENCOUNTER 2019-12-05 12:17 | Inpatient (IN) | payer MEDICARE, OTHER ==
[~2019-12-05] VITALS: Ht 162.6 cm; Wt 114.3 kg
--- OUTSIDE RECORDS SUMMARY | 2019-12-05 12:20 | XMS REPORT ---
Author Author [facility] t Organization [facility] Address [address] [place] [address] Phone Unavailable Care Team Providers Care Blood Bank Technician Name Role Phone Feliciano CARSON Attphyfeliciano Unavailable Payers Payer Name Policy Type Policy Number Effective Date Expiration Date S ource Problems Condition Name Condition Details Condition Category Status Onset Date Resolution Date Last Treatment Date Treating Clinician Comments Source Neuropathy Neuropathy Problem Active [facility] Allergies, Adverse Reactions, Alerts Allergy Name Allergy Type Status Severity Reaction(s) Onset Date Inacti ve Date Treating Clinician Comments Source Penicillins DA Active SV 2015-04-28 00:00:00 [facility] PENICILLINS Allergy to substance Active Moderate Hives [facility] Social History Smoking Status Start Date Stop Date Source Never Smoker [facility] Medications Ordered Medication Name Filled Medication Name Start Date Stop Da te Current Medication? Ordering Clinician Indication Dosage Frequency Signature (SIG) Comments Components Source diclofenac 1 % topical gel appl,y three times a day. d iclofenac 1 % topical gel appl,y three times a day. No diclofenac 1 % topical gel appl,y three times a day. [facility] ice fluocinonide 0.05 % topical cream Apply 100 g 3 times a day by topical route for 15 days. fluocinonide 0.05 % topical cream Apply 100 g 3 times a day by topical route for 15 days. No 100g TID fluoc inonide 0.05 % topical cream Apply 100 g 3 times a day by topical route for 15 days. [facility] fluticasone propionate 50 mcg/actuation nasal spray,suspension Reasnor 1 spray twice a day by intranasal route as directed for 14 days. fluticasone propionate 50 mcg/actuation nasal spray,suspension Reasnor 1 spray twice a day by intranasal route as directed for 14 days. No 1spray(s) BID fluticasone propionate 50 mcg/actuation nasal spray,suspension Reasnor 1 spray twice a day by intranasal route as directed for 14 days. [facility] gabapentin 300 mg capsule Take 1 capsule twice a day b y oral route for 30 days. gabapentin 300 mg capsule Take 1 capsule twice a day by oral route for 30 days. No 1capsule(s) BID gabapent in 300 mg capsule Take 1 capsule twice a day by oral route for 30 days. [facility] Iron (ferrous sulfate) 325 mg (65 mg iro n) tablet Take 1 tablet every day by oral route. Iron (ferrous sulfate) 325 mg (65 mg iro n) tablet Take 1 tablet every day by oral route. No 1 Q1D Iron (ferrous sulfate) 325 mg (65 mg iron) tablet Take 1 tablet every day by oral route. [facility] Levaquin 500 mg tablet Take 1 tablet viet ry 24 hours by oral route as directed for 10 days. Levaquin 500 mg tablet Take 1 tablet viet ry 24 hours by oral route as directed for 10 days. No 1 Q24H Levaquin 500 mg tablet Take 1 tablet every 24 hours by oral route as directed for 10 days. [facility] lidocaine-prilocaine 2.5 %-2.5 % topical cream apply t hree times a day. lidocaine-prilocaine 2.5 %-2.5 % topical cream apply three times a day. No lidocaine-prilocaine 2.5 %-2.5 % top ical cream apply three times a day. [facility] meclizine 25 mg tablet Take 1 tablet as needed by oral route at bedtime for 14 days. meclizine 25 mg tablet Take 1 tablet as needed by oral route at bedtime for 14 days. No 1 meclizine 2 5 mg tablet Take 1 tablet as needed by oral route at bedtime for 14 days. [facility] meloxicam 15 mg tablet Take 1 tablet viet ry day by oral route as needed for 90 days. meloxicam 15 mg tablet Take 1 tablet viet ry day by oral route as needed for 90 days. No 1 Q1D meloxicam 15 mg tablet Take 1 tablet every day by oral route as needed for 90 days. [facility] ProAir HFA 90 mcg/actuation aerosol inha ler [...] inhalation route as needed for 10 days. [facility] Tessalon Perles 100 mg capsule Take 1 [...] oral route as needed for 10 days. [facility] ice tramadol 50 mg tablet Take 1 tablet ever y day by oral route as needed for 30 days. tramadol 50 mg tablet Take 1 tablet ever y day by oral route as needed for 30 days. No 1 Q1D tramadol 50 mg tablet Take 1 tablet every day by oral route as needed for 30 days. [facility] Vitamin D3 1,000 unit chewable tablet Take 1 tablet ev doroteo day by oral route. Vitamin D3 1,000 unit chewable tablet Take 1 tablet every day by oral route. No 1 Q1D Vitamin D3 1,0 00 unit chewable tablet Take 1 tablet every day by oral route. [facility] Multivitamin ONE DAILY Women's Multivitamin ONE DAILY No Women's Multivitamin ONE DAILY [facility] Immunizations Ordered Immunization Name Filled Immunization Name Date Status Comments Source Tdap Tdap 2019-05-27 11:48:00 Completed [facility] influenza, recombinant, quadrIvalent,injectable, prese rvative free influenza, recombinant, quadrIvalent,injectable, preservative free 2019-04-01 10:32:00 Completed [facility] Vital Signs Vital Name Observation Time Observation Value Comments Source BP Diastolic 2019-05-27 00:00:00 88 mm[Hg] [facility] Height 2019-05-27 00:00:00 63.6 [in_i] [facility] BMI (Body Mass Index) 2019-05-27 00:00:00 44.9 kg/m2 [facility] BP Systolic 2019-05-27 00:00:00 128 mm[Hg] [facility] Body Weight 2019-05-27 00:00:00 258.4 [lb_av] [facility] BP Diastolic 2019-05-21 00:00:00 86 mm[Hg] [facility] Height 2019-05-21 00:00:00 63.6 [in_i] [facility] BMI (Body Mass Index) 2019-05-21 00:00:00 45.5 kg/m2 [facility] BP Systolic 2019-05-21 00:00:00 124 mm[Hg] [facility] Body Weight 2019-05-21 00:00:00 262 [lb_av] [facility] BP Diastolic 2019-04-29 00:00:00 82 mm[Hg] [facility] Height 2019-04-29 00:00:00 63.6 [in_i] [facility] BMI (Body Mass Index) 2019-04-29 00:00:00 44.5 kg/m2 [facility] BP Systolic 2019-04-29 00:00:00 128 mm[Hg] [facility] Body Weight 2019-04-29 00:00:00 256.2 [lb_av] [facility] BP Diastolic 2019-04-01 00:00:00 84 mm[Hg] [facility] Height 2019-04-01 00:00:00 63.6 [in_i] [facility] BMI (Body Mass Index) 2019-04-01 00:00:00 45 kg/m2 [facility] BP Systolic 2019-04-01 00:00:00 122 mm[Hg] [facility] Body Weight 2019-04-01 00:00:00 259 [lb_av] [facility] Procedures Procedure Date / Time Performed Performing Clinician Sourc e MAMMO, screening, digital, bilateral 2019-04-01 00:00:00 [facility] Orthopedic Surgery 2018-07-22 00:00:00 [facility] Orthopedic Surgery 2017-07-22 00:00:00 [facility] Gastrointestinal Surgery 2016-07-22 00:00:00 [facility] Orthopedic Surgery 2016-07-22 00:00:00 [facility] Colonoscopy 2015-07-22 00:00:00 [facility] Orthopedic Surgery 2013-07-22 00:00:00 [facility] Orthopedic Surgery 2011-07-22 00:00:00 [facility] Total Hysterectomy 2008-07-22 00:00:00 [facility] Procedure on Bladder 2008-07-22 00:00:00 [facility] Cholecystectomy (Gall Bladder Removal) 2008-07-22 00:00:00 [facility] Other 2008-07-22 00:00:00 [facility] Hernia Repair 2007-07-22 00:00:00 [facility] Orthopedic Surgery 2006-07-22 00:00:00 [facility] Tubal Ligation 1986-07-22 00:00:00 [facility] Other 1969-07-22 00:00:00 [facility] Encounters Start Date/Time End Date/Time Encounter Type Admission Type [facility] Care Department Encounter ID Source 2019-05-27 00:00:00 2019-05-27 00:00:00 Altaf longoria MD: [address] [place] [address], [facility] [id number] [facility] 2019-05-21 00:00:00 2019-05-21 00:00:00 Ulises Kemp MD: [id number] [place] [address], [facility] [id number] [facility] 2019-04-29 00:00:00 2019-04-29 00:00:00 Altaf longoria MD: [address] [place] [address], [facility] [id number] [facility] 2019-04-01 00:00:00 2019-04-01 00:00:00 Altaf longoria MD: [address] [place] [address], [facility]. [facility] - [facility] - [facility] [id number] [facility] Results Test Description Test Time Test Comments Results Result Comments Source CHEST 2 VIEWS 2019-12-04 16:23:00 [place] [address] Patient Name: HARDEEP PENA MR #: [id number] : 1960 Age/Sex: 59/F Req #: [id number] Adm Physician: Ordered by: CARLOS GRANDE CURATOR OF PHOTOGRAPHY AND PRINTS Report #: [id number] Location: ER Room/Bed: Procedure: [id number] DX/CHEST 2 VIEWS Exam Date: 12/04/19 Exam Time: 1602 REPORT STATUS: Signed EXAMINATION: CHEST 2 VIEWS INDICATION: Fever, urinary tract infection COMPARISON: None FINDINGS: LINES/TUBES:None LUNGS:The lungs are well-inflated. No focal consolidation or pulmonary edema. PLEURA:No pleural effusion or pneumotho rax. MEDIASTINUM:The cardiomediastinal silhouette appears normal in size and shape. BONES/SOFT TISSUES:No acute osseous injury. ABDOMEN:No free air under the diaphragm. IMPRESSION: No focal pneumonia or pulmonary edema. Signed by: Jesi Navarro MD on 12/04/2019 4:24 PM Dictated By: JESI NAVARRO MD 23 Transcribed By: LARS on 12/04/191623 COPY TO: CARLOS GRANDE CURATOR OF PHOTOGRAPHY AND PRINTS SCR MAMM BILATERAL JULIET CAD DIGITAL 2019-04-21 08:59:04 - SCR MAMM BILATERAL JULIET CAD DIGITALBILATERAL DIGITAL SCREENING MAMMOGRAM 3D/2D WITH CAD: 04/18/2019CLINICAL: Asymptomatic. Digital breast tomosynthesis was performed in addition to routine CC and MLO views. Current mammographic images were evaluated by either a [employer] M-Vu or a [employer] ImageChecker CAD (computer aided detection system). Comparison is made to exams dated 03/26/2018 mammogram, 2014 mammogram - [facility], and 07/02/2008 mammogram - [facility]. The tissue of both breasts is predominantly fatty. There are benign calcifications in both breasts. No suspicious mass, architectural distortion, malignant type calcification, or lymph node abnormality detected. Breast architecture is stable compared to prior exams.IMPRESSION: BENIGNThere is no mammographic evidence of malignancy. Resume annual screening mammography in one year. Abiel zabala/celestino:04/21/2019 08:59:04 Sash Finisher: Faye MCINTOSH, [facility]: BIRADS 1-2 Normal Mammogram BI-RADS: 2 Benign
[2019-12-05] MEDS ORDERED: VANCOMYCIN 1GM/NS 250 ML 250 ML IV STA (12:31)
[2019-12-05] MEDS ORDERED: SODIUM CHLORIDE 0.9% 1000ML 1,000 ML IV STA (12:31)
[2019-12-05] MEDS ORDERED: CEFEPIME 1GM/NS 0.9% 50 ML 50 ML IV STA (12:31)
[2019-12-05] MEDS ORDERED: ONDANSETRON HCL INJ 2MG/ML 2ML 2 MG/ML VIAL IV NR (12:31)
[2019-12-05] MEDS ORDERED: MORPHINE SULFATE 5 MG/ML VIAL IV ONE (12:45)
[2019-12-05 12:57] LABS: BASOPHILS % 0.3 % (0.0-1.0); HEMATOCRIT 44.1 % (34.2-44.1); HEMOGLOBIN 14.5 g/dL (12.0-16.0); LYMPHOCYTES # (AUTO) 1.6 (1.0-3.2); LYMPHOCYTES % 16.7 % (18.0-39.1); MEAN CORPUSCULAR HEMOGLOBIN 30.3 pg (28-32); MEAN CORPUSCULAR HGB CONC 32.9 g/dL (31-35); MEAN CORPUSCULAR VOLUME 92.1 fL (81-99); MONOCYTES # (AUTO) 0.7 (0.2-0.8); MONOCYTES % 7.5 % (4.4-11.3); NEUTROPHILS % 75.1 % (38.7-80.0); PLATELET COUNT 174 x10e3/uL (140-360); RED BLOOD COUNT 4.79 x10e6/uL (3.6-5.1); RED CELL DISTRIBUTION WIDTH 12.4 % (11.7-14.4)
[2019-12-05] MEDS ORDERED: MORPHINE SULFATE INJ 4 MG/ML INJ 1ML ONE (13:05)
[2019-12-05 13:27] LABS: ALANINE AMINOTRANSFERASE 108 IU/L (0-55); ALBUMIN/GLOBULIN RATIO 0.8 (0.8-2.0); ALKALINE PHOSPHATASE 97 IU/L (40-150); ANION GAP 13.4 mmol/L (8-16); BLOOD UREA NITROGEN 12 mg/dL (7-26); BUN/CREATININE RATIO 15 (6-25); CALCIUM 9.1 mg/dL (8.4-10.2); CARBON DIOXIDE 22 mmol/L (22-29); CHLORIDE 108 mmol/L (98-107); CREATININE, SERUM 0.78 mg/dL (0.57-1.11); EST GLOMERULAR FILTRATION RATE > 60 ML/MIN (60-); GLUCOSE 115 mg/dL (74-118); POTASSIUM 3.4 mmol/L (3.5-5.1); SODIUM 140 mmol/L (136-145)
--- NOTE | 2019-12-05 14:07 | NUR ---
borders marked and dated to left lower leg. +dp and cap refill < 2 seconds.
[2019-12-05] MEDS ORDERED: IOPAMIDOL 370 MG/ML 200 ML INFUS..BTL INJ ONE (14:48)
[2019-12-05] MEDS ORDERED: SODIUM CHLORIDE 0.9% 50ML 50 ML ONE (14:48)
--- OUTSIDE RECORDS SUMMARY | 2019-12-05 14:59 | XMS REPORT ---
Author Author [facility] t Organization [facility] Address [address] [place] [address] Phone Unavailable Care Team Providers Care Store Grocery Merchandiser Name Role Phone Feliciano CARSON Attphyfeliciano Unavailable Payers Payer Name Policy Type Policy Number Effective Date Expiration Date S ource Problems Condition Name Condition Details Condition Category Status Onset Date Resolution Date Last Treatment Date Treating Clinician Comments Source Neuropathy Neuropathy Problem Active V illage [facility] Allergies, Adverse Reactions, Alerts Allergy Name Allergy Type Status Severity Reaction(s) Onset Date Inacti ve Date Treating Clinician Comments Source Penicillins DA Active SV 2015-04-28 00:00:00 [facility] PENICILLINS Allergy to substance Active Moderate Hives [facility] Social History Smoking Status Start Date Stop Date Source Never Smoker [facility] Medications Ordered Medication Name [...] day by topical route for 15 days. [facility] fluticasone propionate 50 mcg/actuation nasal spray,suspension [place] 1 spray twice a day by intranasal route as directed for 14 days. fluticasone propionate 50 mcg/actuation nasal spray,suspension [place] 1 spray twice a day by intranasal route as directed for 14 days. No 1spray(s) BID fluticasone propionate 50 mcg/actuation nasal spray,suspension [place] 1 spray twice a day by intranasal route as directed for 14 days. [facility] gabapentin 300 mg capsule Take 1 capsule twice a day b y oral route for 30 days. gabapentin 300 mg capsule Take 1 capsule twice a day by oral route for 30 days. No 1capsule(s) BID gabapent in 300 mg capsule Take 1 capsule twice a day by oral route for 30 days. [facility] Iron (ferrous sulfate) 325 mg (65 mg iro n) tablet Take 1 tablet every day by oral route. Iron (ferrous sulfate) 325 mg (65 mg iro n) tablet Take 1 tablet every day by oral route. No 1 Q1D Iron (ferrous sulfate) 325 mg (65 mg iron) tablet Take 1 tablet every day by oral route. [facility] Levaquin 500 mg tablet Take 1 tablet viet ry 24 hours by oral route as directed for 10 days. Levaquin 500 mg tablet Take 1 tablet viet ry 24 hours by oral route as directed for 10 days. No 1 Q24H Levaquin 500 mg tablet Take 1 tablet every 24 hours by oral route as directed for 10 days. [facility] lidocaine-prilocaine 2.5 %-2.5 % topical cream apply t hree times a day. lidocaine-prilocaine 2.5 %-2.5 % topical cream apply three times a day. No lidocaine-prilocaine 2.5 %-2.5 % top ical cream apply three times a day. [facility] meclizine 25 mg tablet Take 1 tablet as needed by oral route at bedtime for 14 days. meclizine 25 mg tablet Take 1 tablet as needed by oral route at bedtime for 14 days. No 1 meclizine 2 5 mg tablet Take 1 tablet as needed by oral route at bedtime for 14 days. [facility] meloxicam 15 mg tablet Take 1 tablet viet ry day by oral route as needed for 90 days. meloxicam 15 mg tablet Take 1 tablet viet ry day by oral route as needed for 90 days. No 1 Q1D meloxicam 15 mg tablet Take 1 tablet every day by oral route as needed for 90 days. [facility] ProAir HFA 90 mcg/actuation aerosol [...] inhalation route as needed for 10 days. [facility] Tessalon Perles 100 mg capsule Take [...] oral route as needed for 10 days. [facility] ice tramadol 50 mg tablet Take 1 tablet ever y day by oral route as needed for 30 days. tramadol 50 mg tablet Take 1 tablet ever y day by oral route as needed for 30 days. No 1 Q1D tramadol 50 mg tablet Take 1 tablet every day by oral route as needed for 30 days. [facility] Vitamin D3 1,000 unit chewable tablet Take 1 tablet ev doroteo day by oral route. Vitamin D3 1,000 unit chewable tablet Take 1 tablet every day by oral route. No 1 Q1D Vitamin D3 1,0 00 unit chewable tablet Take 1 tablet every day by oral route. [facility] Women's Multivitamin ONE DAILY Women's Multivitamin ONE DAILY No Women's Multivitamin ONE DAILY [facility] Immunizations Ordered Immunization Name Filled Immunization Name Date Status Comments Source Tdap Tdap 2019-05-27 11:48:00 Completed [facility] influenza, recombinant, quadrIvalent,injectable, prese rvative free influenza, recombinant, quadrIvalent,injectable, preservative free 2019-04-01 10:32:00 Completed [facility] Vital Signs Vital Name Observation Time Observation Value Comments Source BP Diastolic 2019-05-27 00:00:00 88 mm[Hg] [facility] Height 2019-05-27 00:00:00 63.6 [in_i] [facility] BMI (Body Mass Index) 2019-05-27 00:00:00 44.9 kg/m2 [facility] BP Systolic 2019-05-27 00:00:00 128 mm[Hg] [facility] Body Weight 2019-05-27 00:00:00 258.4 [lb_av] [facility] BP Diastolic 2019-05-21 00:00:00 [...] (Body Mass Index) 2019-04-29 00:00:00 44.5 kg/m2 [facility] BP Systolic 2019-04-29 00:00:00 128 mm[Hg] [facility] Body Weight 2019-04-29 00:00:00 256.2 [lb_av] [facility] BP Diastolic 2019-04-01 00:00:00 [...] e MAMMO, screening, digital, bilateral 2019-04-01 00:00:00 [facility] Orthopedic Surgery 2018-07-22 00:00:00 [facility] Orthopedic Surgery 2017-07-22 00:00:00 [facility] Gastrointestinal Surgery 2016-07-22 00:00:00 [facility] Orthopedic Surgery 2016-07-22 00:00:00 [facility] Colonoscopy 2015-07-22 00:00:00 [facility] Orthopedic Surgery 2013-07-22 00:00:00 [facility] Orthopedic Surgery 2011-07-22 00:00:00 [facility] Total Hysterectomy 2008-07-22 00:00:00 [facility] Procedure on Bladder 2008-07-22 00:00:00 [facility] Cholecystectomy (Gall Bladder Removal) 2008-07-22 00:00:00 [facility] Other 2008-07-22 00:00:00 [facility] Hernia Repair 2007-07-22 00:00:00 [facility] Orthopedic Surgery 2006-07-22 00:00:00 [facility] Tubal Ligation 1986-07-22 [facility] 1969-07-22 00:00:00 [facility] Practice Encounters Start Date/Time End Date/Time Encounter Type Admission Type [facility] Care Department Encounter ID Source 2019-05-27 00:00:00 2019-05-27 00:00:00 Altaf longoria MD: [address] [place] [address], Ph. [facility] [id number] [facility] 2019-05-21 00:00:00 2019-05-21 00:00:00 Ulises Kemp MD: [address] [place] [address], Ph. [facility] [id number] [facility] 2019-04-29 00:00:00 2019-04-29 00:00:00 Altaf longoria MD: [address] [place] [address], Ph. [facility] [id number] [facility] 2019-04-01 00:00:00 2019-04-01 00:00:00 Altaf longoria MD: [address] [place] [address], Ph. [facility] [id number] [facility] Results Test Description Test Time Test Comments Results Result Comments Source CHEST 2 VIEWS 2019-12-04 16:23:00 [place] [address] Patient Name: HARDEEP PENA MR #: [id number] : 1960 Age/Sex: 59/F Req #: [id number] Adm Physician: Ordered by: CARLOS GRANDE GAS STATION CLERK Report #: [id number] Location: ER Room/Bed: Procedure: [id number] DX/CHEST 2 VIEWS Exam Date: 12/04/19 Exam [...] LARS on 12/04/191623 COPY TO: CARLOS GRANDE GAS STATION CLERK SCR MAMM BILATERAL JULIET CAD DIGITAL 2019-04-21 08:59:04 - SCR MAMM BILATERAL JULIET CAD DIGITALBILATERAL DIGITAL SCREENING MAMMOGRAM 3D/2D WITH CAD: 04/18/2019CLINICAL: Asymptomatic. Digital breast tomosynthesis was performed in addition to routine CC and MLO views. Current mammographic images were evaluated by either a [employer] M-Vu or a [employer] ImageChecker CAD (computer aided detection system). Comparison is made to exams dated 03/26/2018 mammogram, 2014 mammogram - [facility], and 07/02/2008 mammogram - [facility]. The tissue of both breasts is predominantly fatty. There are benign calcifications in both breasts. No suspicious mass, architectural distortion, malignant type calcification, or lymph node abnormality detected. Breast architecture is stable compared to prior exams.IMPRESSION: BENIGNThere is no mammographic evidence of malignancy. Resume annual screening mammography in one year. Abiel zabala/celestino:04/21/2019 08:59:04 Tractor Sweeper Driver: Faye MCINTOSH, [facility] sent: BIRADS 1-2 Normal Mammogram BI-RADS: 2 Benign
--- NOTE | 2019-12-05 16:31 | Diagnostic Imaging Report ---
EXAM: CT Abdomen and Pelvis WITH contrast INDICATION: ^Y ^flank pain, fever ^20191205 ^1500 COMPARISON: None. TECHNIQUE: Abdomen and pelvis were scanned utilizing a multidetector helical scanner from the lung base to the pubic symphysis after administration of IV contrast. Coronal and sagittal reformations were obtained. Routine protocol was performed. Scan was performed when during portal venous phase. IV CONTRAST: 100 mL of Isovue-370 ORAL CONTRAST: None RADIATION DOSE: Total DLP: 1168 mGy*cm Estimated effective dose: (DLP x 0.015 x size factor) mSv COMPLICATIONS: None FINDINGS: LINES and TUBES: None. LOWER THORAX: Unremarkable HEPATOBILIARY: No focal hepatic lesions. No biliary ductal dilation. GALLBLADDER: Cholecystectomy. SPLEEN: No splenomegaly. PANCREAS: No focal masses or ductal dilatation. ADRENALS: No adrenal nodules KIDNEYS/URETERS: Kidneys enhance symmetrically. No hydronephrosis. No cystic or solid mass lesions. No stones. GI TRACT: Postsurgical changes in the stomach. No abnormal distention, wall thickening, or evidence of bowel obstruction. Appendix is normal. PELVIC ORGANS/BLADDER: The urinary bladder is collapsed. Mild fat stranding surrounding the urinary bladder. The uterus appears either atrophic or surgically absent. 2.3 cm well-circumscribed low-attenuation cystic structure in the left pelvis on series 2, image 62 may represent a adnexal cyst. LYMPH NODES: No lymphadenopathy. VESSELS: Unremarkable. PERITONEUM / RETROPERITONEUM: No free air or fluid. BONES: Scoliosis. Mild degenerative changes of the lumbar spine. SOFT TISSUES: Unremarkable. IMPRESSION: No calcified stones or hydroureteronephrosis. The urinary bladder is collapsed but surrounding by mild fat stranding. Correlate with urinary analysis for cystitis. Appendix not visualized. No inflammatory changes in the right lower quadrant. Signed by: Dr. Gertrudis Noguera M.D. on 12/05/2019 4:28 PM
--- NOTE | 2019-12-05 17:13 | NUR ---
HAT AND URINE CUP REMAIN AT BEDSIDE AND PT WAS REMINDED SEVERAL TIMES FOR NEED FOR UA.
--- NOTE | 2019-12-05 17:43 | Emergency Department Note ---
History of Present Illnes History of Present Illness Chief Complaint: Extremity Trauma/Pain History of Present Illness This is a 59 year old female arrived for continued fever, back pain and left lower leg swelling. Pt seen in the ED yesterday, did not fill prescription for antibiotics. Chief Complaint Comment HERE FOR SAME SYMPTOMS YESTERDAY, BACK PAIN, LEFT LEG PAIN WITH REDNESS. FEVER AT HOME, TOOKTYLENOL AT 0900. Historian: Patient Arrival Mode: Car Microbiology Manager Required: No Onset (how long ago): day(s) Radiation: flank Onset quality: gradual Duration (how long): day(s) Timing of current episode: constant Progression: worsening Relieving factors: none Exacerbating factors: none Past Medical/Family History Physician Review I have reviewed the patient's past medical and family history. Any updates have been documented here. Past Medical History Recent Fever: Yes Clinical Suspicion of Infectio: Yes New/Unexplained Change in Ment: No Past Medical History: None Other Surgery: shoulder surgery, lap band surgery, hernia surgery Social History Smoking Cessation: Never Smoker Counseling Performed: No Alcohol Use: None Any Illegal Drug Use: No TB Exposure/Symptoms: No Physically hurt or threatened: No Other Last Flu: YES Last Pneumovax: YES Review of Systems Review of Systems Constitutional: no symptoms EENTM: no symptoms Cardiovascular: no symptoms Respiratory: no symptoms Gastrointestinal: no symptoms Genitourinary: dysuria, frequency, hematuria Musculoskeletal: back pain Neurological: no symptoms Psychological: no symptoms Endocrine: no symptoms Hematological/Lymphatic: no symptoms Review of other systems left lower leg swelling All other systems reviewed and negative. Physical Exam Related Data Allergies: Uncoded Allergies: BERRIES, COCONUT (Allergy, Mild, rash and hives, 12/08/10) PCN (Allergy, Unknown, rash, 12/04/19) Triage Vital Signs Vital Signs Date Time Temp Pulse Resp B/P (MAP) Pulse Ox O2 Delivery O2 Flow Rate FiO2 12/05/19 12:32 98.8 70 16 139/81 95 Vital signs reviewed: Yes Physical Exam CONSTITUTIONAL Constitutional: obese HENT HENT: normocephalic, atraumatic, oropharynx clear/moist, nose normal HENT L/R: left ext ear normal, right ext ear normal EYES Eyes: PERRL, conjunctivae normal NECK Neck: ROM normal PULMONARY Pulmonary: effort normal, breath sounds normal CARDIOVASCULAR Cardiovascular: regular rhythm, heart sounds normal, capillary refill normal, normal rate GASTROINTESTINAL Abdominal: soft, nontender, bowel sounds normal GENITOURINARY Genitourinary: exam deferred SKIN Skin: other (left lower extremity erythema and edema, c/w cellulitis) MUSCULOSKELETAL Musculoskeletal: ROM normal NEUROLOGICAL Neurological: alert, oriented x 3, no gross motor or sensory deficits PSYCHOLOGICAL Psychological: mood/affect normal, judgement normal Results Laboratory Result Diagram: 12/05/19 1240 12/05/19 1240 Laboratory Laboratory Tests Test 12/05/19 12:40 12/05/19 12:39 White Blood Count 9.32 x10e3/uL (4.8-10.8) Red Blood Count 4.79 x10e6/uL (3.6-5.1) Hemoglobin 14.5 g/dL (12.0-16.0) Hematocrit 44.1 % (34.2-44.1) Mean Corpuscular Volume 92.1 fL (81-99) Mean Corpuscular Hemoglobin 30.3 pg (28-32) Mean Corpuscular Hemoglobin Concent 32.9 g/dL (31-35) Red Cell Distribution Width 12.4 % (11.7-14.4) Platelet Count 174 x10e3/uL (140-360) Neutrophils (%) (Auto) 75.1 % (38.7-80.0) Lymphocytes (%) (Auto) 16.7 % (18.0-39.1) Monocytes (%) (Auto) 7.5 % (4.4-11.3) Eosinophils (%) (Auto) 0.0 % (0.0-6.0) Basophils (%) (Auto) 0.3 % (0.0-1.0) Neutrophils # (Auto) 7.0 (2.1-6.9) Lymphocytes # (Auto) 1.6 (1.0-3.2) Monocytes # (Auto) 0.7 (0.2-0.8) Eosinophils # (Auto) 0.0 (0.0-0.4) Basophils # (Auto) 0.0 (0.0-0.1) Absolute Immature Granulocyte (auto 0.04 x10e3/uL (0-0.1) Sodium Level 140 mmol/L (136-145) Potassium Level 3.4 mmol/L (3.5-5.1) Chloride Level 108 mmol/L (98-107) Carbon Dioxide Level 22 mmol/L (22-29) Anion Gap 13.4 mmol/L (8-16) Blood Urea Nitrogen 12 mg/dL (7-26) Creatinine 0.78 mg/dL (0.57-1.11) Estimat Glomerular Filtration Rate > 60 ML/MIN (60-) BUN/Creatinine Ratio 15 (6-25) Glucose Level 115 mg/dL (74-118) Lactic Acid Level 0.9 mmol/L (0.5-2.0) Calcium Level 9.1 mg/dL (8.4-10.2) Total Bilirubin 1.2 mg/dL (0.2-1.2) Aspartate Amino Transf (AST/SGOT) 49 IU/L (5-34) Alanine Aminotransferase (ALT/SGPT) 108 IU/L (0-55) Alkaline Phosphatase 97 IU/L (40-150) Total Protein 6.7 g/dL (6.5-8.1) Albumin 3.0 g/dL (3.5-5.0) Globulin 3.7 g/dL (2.3-3.5) Albumin/Globulin Ratio 0.8 (0.8-2.0) Lab results reviewed: Yes Imaging Imaging results reviewed: Yes Impressions IMPRESSION: No calcified stones or hydroureteronephrosis. The urinary bladder is collapsed but surrounding by mild fat stranding. Correlate with urinary analysis for cystitis. Appendix not visualized. No inflammatory changes in the right lower quadrant. Signed by: Dr. Gertrudis Noguera M.D. on 12/05/2019 4:28 PM Critical Care Time Subsequent provider I assumed direction of critical care for this patient from another provider of my specialty. Assessment & Plan Assessment & Plan Problems: (1) Cellulitis (2) Pyelonephritis (3) UTI (urinary tract infection) Assessment & Plan Pyelonephritis/Cystitis/UTI -UA, U culture -CT AP -Cefepime Cellulitis -Vanco -borders demarcated Depart Disposition: ADMITTED Last Vital Signs Date Time Temp Pulse Resp B/P (MAP) Pulse Ox O2 Delivery O2 Flow Rate FiO2 12/05/19 17:02 79 18 138/82 99 12/05/19 12:32 98.8 Home Meds Reported Medications Lisinopril/Hydrochlorothiazide (Lisinopril-Hctz 20-12.5 Mg Tab) 1 Each Tablet, 1 PO DAILY 12/08/10 Medications in the ED Sodium Chloride 1,000 ml @ 0 mls/hr Q0M STAT IV Last administered on 12/05/19 13:40; Admin Dose 1,000 MLS/HR; Start 12/05/19 at 12:31; Stop 12/05/19 at 12:41; Status DC Cefepime HCl 50 ml @ 100 mls/hr Q24H STAT IV Last administered on 12/05/19at 13:40; Admin Dose 100 MLS/HR; Start 12/05/19 at 12:31; Stop 12/05/19 at 13:00; Status DC Morphine Sulfate 6 mg ONCE ONCE IV Last administered on 12/05/19 13:41; Admin Dose 6 MG; Start 12/05/19 at 12:45; Stop 12/05/19 at 13:11; Status DC Ondansetron HCl 4 mg NOW IV Last administered on 12/05/19 13:41; Admin Dose 4 MG; Start 12/05/19 at 12:31; Stop 12/05/19 at 13:59; Status DC Vancomycin HCl 250 ml @ 200 mls/hr NOW STAT IV Last administered on 12/05/19 16:35; Admin Dose 200 MLS/HR; Start 12/05/19 at 12:31; Stop 12/05/19 at 13:45; Status DC Morphine Sulfate 8 mg STK-MED ONCE .ROUTE ; Start 12/05/19 at 13:05; Stop 12/05/19 at 12:59; Status DC LUIS CARSON, December 05, 2019 17:58
--- NOTE | 2019-12-05 18:48 | NUR ---
PT UPDATED THAT [facility] NURSE CALL NELIDA PIERRE WHO WAS TO MOVE PT SINCE 1800 BUT NEVER SHOWED UP. PT CANT BE MOVED AT THIS TIME D/T SHIFT CHANGE.
--- NOTE | 2019-12-05 18:49 | NUR ---
PT WAS LET UP TO USE RESTROOM TO VOID. PT DID NOT GET URINE AND STATES, "NOBODY TOLD ME." THIS WAS EXPLAINED AGAIN TO PT WITH HAT AND CUP WITH PT LABEL REMAINS AT BEDSIDE.
--- NOTE | 2019-12-05 19:01 | NUR ---
REPORT CALLED AT 1740, AWAITING TRANSPORT PER ED DS ENERGY ADVISOR
[2019-12-05 20:10] VITALS: BP 108/45
--- NOTE | 2019-12-05 20:20 | NUR ---
Received patient from ER. Patient is alert and oriented x 3. patient welcomed and offered a bed, safety and fall precautions maintained as per hospital protocol: bed in lowest position and locked, needed items beside bed, call carver placed close to patient, patient instructed to use it to call for help and verbalized understanding, patient is currently stable will continue to monitor.
[2019-12-05] MEDS ORDERED: METOPROLOL TARTRATE INJ 1 MG/ML VIAL IV PRN (20:30)
[2019-12-05] MEDS ORDERED: ACETAMINOPHEN 325 MG TAB PO PRN (20:30)
[2019-12-05] MEDS ORDERED: ZOLPIDEM TARTRATE 5 MG TAB PO PRN (20:30)
[2019-12-05 20:52] VITALS: BP 108/45
[2019-12-05] MEDS: TRAMADOL HCL 50 MG TAB PO PRN (21:32)
[2019-12-05] MEDS: CEFEPIME 1GM/NS 0.9% 50 ML 50 ML IV SCH (21:33)
[2019-12-05 21:40] VITALS: BP 108/45
[2019-12-06] VITALS (8 sets, daily range): BP systolic 90–129; BP diastolic 51–70
[2019-12-06 01:22] LABS: CLARITY,URINE CLEAR (CLEAR); COLOR,URINE AMBER (YELLOW); KETONES,URINE NEGATIVE (NEGATIVE); LEUKOCYTE ESTERASE ,URINE NEGATIVE (NEGATIVE); NITRITE,URINE NEGATIVE (NEGATIVE); PROTEIN,URINE DIPSTICK 1+ (NEGATIVE); URINE UROBILINOGEN 1 mg/dL (0.2 - 1)
[2019-12-06 01:23] LABS: BILIRUBIN,URINE SMALL (NEGATIVE)
[2019-12-06 01:24] LABS: BACTERIA,URINE FEW /HPF; EPITHELIAL CELLS,URINE MANY /LPF
[2019-12-06 02:36] LABS: CHOL/HDL RATIO 3.9 (3.0-3.6)
[2019-12-06] MEDS: TRAMADOL HCL 50 MG TAB PO PRN ×2 (04:22→11:10)
[2019-12-06] MEDS: VANCOMYCIN 1GM/NS 250 ML 250 ML IV SCH (06:45)
--- NOTE | 2019-12-06 06:56 | NUR ---
Received bedside shift report from off going nurse. Patient is in stable condition, no acute distress noted. Call light within reach. Bed in the lowest position.
--- NOTE | 2019-12-06 07:10 | NUR ---
Patient endorsed to next shift for continuity of care.
[2019-12-06] MEDS: FAMOTIDINE 20 MG TAB PO SCH ×2 (08:17→16:21)
[2019-12-06] MEDS: GABAPENTIN 300 MG CAP PO SCH ×4 (08:17→21:17)
--- NOTE | 2019-12-06 12:33 | NUR ---
H&P cc: skin infection HPI: 59yoF, PCP , developed left inner thigh nodule for 1 day with ever of 103F, came to ED, given antibiotic, sent home, but worsened, so returned to ED, found to have left leg cellulitis. Admitted for mgmt; PMH: HTN, obesity PShx: knee x2, shoulder, foot, hysterectomy, cholecystectomy, tubal ligation, lap banding s/p removal, gastric sleeve, hernia Allergies; see emr Fh/SH; ; no cigs; no etoh med;s see MAR ROS: no f/c/s/N/V/D/cp/SOB/dizziness/MALDONADO/skin rash/focal limb weakness v/s revd PE tired anicteric ns1s2 mod bs soft nt nd; left foreleg erythema skin dry flat affect a&ox3; juarez labe/meds revd A/P: Cellulitis- IV abx UTI- IV abx Transaminitis LINDA- IVF Hypokalemia- replace Obesity- hba1c normal BMI 43- as above Prop; Dispo: Reji Orr MD, PhD.
[2019-12-06] MEDS: DOCUSATE SODIUM 100 MG CAP PO PRN (14:13)
[2019-12-06 14:25] LABS: FIBRINOGEN MAIN LAB 666 mg/dL (204-462)
[2019-12-06 14:48] LABS: FERRITIN 1890.51 ng/mL (4.63-204.00)
[2019-12-06] MEDS: MORPHINE SULFATE INJ 4 MG/ML INJ 1ML IV PRN ×2 (14:50→21:17)
[2019-12-06] MEDS: ONDANSETRON HCL INJ 2MG/ML 2ML 2 MG/ML VIAL IV PRN (14:50)
--- NOTE | 2019-12-06 16:08 | Diagnostic Imaging Report ---
EXAM: CT Chest without contrast INDICATION: Evaluate for pneumonia. COMPARISON: CT abdomen/pelvis 12-05-2019. Chest radiograph 12/04/2019. TECHNIQUE: Chest was scanned utilizing a multidetector helical scanner from the lung apex through the level of the adrenal glands without administration of IV contrast. Coronal and sagittal reformations were obtained. Routine protocol was performed. IV CONTRAST: None. RADIATION DOSE: Total DLP: 620 mGy*cm Estimated effective dose: (DLP x 0.014 x size factor) mSv COMPLICATIONS: None FINDINGS: LINES/ TUBES: None. LUNGS AND AIRWAYS: The central airways are patent. No evidence of pneumonia or pulmonary edema. There is mild subsegmental atelectasis within the lingula and left lower lobe. PLEURA: The pleural spaces are clear. HEART AND MEDIASTINUM: The thyroid gland is normal. No mediastinal, hilar or axillary lymphadenopathy. The heart is normal in size.. There is no pericardial effusion. Mild coronary atherosclerotic calcifications (left main). UPPER ABDOMEN: Please refer to the contrast-enhanced abdominal CT from 12/05/2019 for details of intra-abdominal findings. Small hiatal hernia. Postsurgical changes of the stomach. Status post cholecystectomy. BONES: No acute osseous abnormality. No suspicious lytic or blastic lesions. Dextroconvex scoliosis of the thoracic spine. Degenerative disc changes in the midthoracic spine with ossification of the anterior longitudinal ligament, suggestive of DISH. SOFT TISSUES: Unremarkable. IMPRESSION: No evidence of pneumonia. Mild coronary atherosclerotic calcifications (left main). Signed by: Dr. Duglas Schulte MD on 12/06/2019 4:05 PM
--- NOTE | 2019-12-06 19:20 | NUR ---
Bedside shift report given to oncoming nurse. Patient is resting in bed. No acute distress noted at this time. Call light within reach. Bed in the lowest position.
--- NOTE | 2019-12-06 20:17 | Consultation ---
DATE OF CONSULTATION: 12/06/2019 LOCATION: Room #289 of [facility]. REASON FOR CONSULTATION: To evaluate and assist in treating the patient with sepsis, left leg cellulitis, and suspected urinary tract infection. Information is gathered from the current medical record. HISTORY OF PRESENT ILLNESS: I interviewed the patient at the bedside. She is a 59-year-old woman with a history of morbid obesity, who has had a lap band surgery, lap band removal, and gastric sleeve surgeries. She had a history of hypertension until she had the gastric surgeries and lost weight since which she is not taking medications for hypertension. She reports that she developed pain in the left leg associated with fevers for which she came to the emergency room on December 05, 2019. She reports that she was evaluated and told that she had a urinary tract infection and was sent home with antibiotics. When she got home, the pain in her left lower extremity got worse associated with increasing redness and swelling, which prompted her to come back to the hospital for evaluation. The patient also reports that she has recently had a feeling of a scratchy throat. She reports that when she was evaluated in the emergency room, she was found to have erythema in the throat and that she tested negative for the flu as well as for strep. She reports that the test for pandemic coronavirus was obtained. She was admitted to hospital after she was found with increasing redness and swelling of the left leg. At presentation, she had a temperature of 98.8 degrees Fahrenheit. She has since had temperatures up to 99.3, her pulse rate was 70, respiratory rate 16, and blood pressure 139/81. She had a CBC done that showed a white count of 9.3, hemoglobin 14.5, and platelet count is 174. Also, creatinine was 0.7. Liver function tests slightly abnormal with AST 49 and ALT 108, alkaline phosphatase and total bilirubin normal. A urinalysis from December 04 showed a clear urine with negative nitrites and negative esterase, 6 to 10 RBCs, 11 to 20 WBCs, many epithelial cells and a few bacteria. She had blood and urine cultures collected on December 04 that are being processed. A CT of her abdomen and pelvis showed no stones or hydroureteronephrosis. There was mild fat stranding around the urinary bladder with concern for cystitis. The patient has been started on treatment with vancomycin and cefepime. MEDICAL HISTORY: As reported above. There is no history of diabetes mellitus. No history of myocardial infarction or CVA. She has had hysterectomy, cholecystectomy, lap band surgery, lap band removal, gastric sleeve surgery, right rotator cuff surgery, five surgeries on her left foot and one surgery on the right foot. She has had arthroscopic surgeries on both knees. SOCIAL HISTORY: She denies tobacco, alcohol, and other forms of recreational drug use. FAMILY HISTORY: Not contributory to her current hospitalization. ALLERGIES: SHE IS ALLERGIC TO PENICILLIN. SHE HAS TAKEN KEFLEX IN THE PAST WITHOUT ANY ADVERSE REACTION. MEDICATIONS: As reported earlier, she is on vancomycin and cefepime. The rest of her medications are per the medication administration report. REVIEW OF SYSTEMS: The patient is alert. Her sensorium is clear. She has no headache or neck stiffness. She reports a scratchy throat, but no generalized body aches or pains. She coughs intermittently. It is nonproductive. No nausea, vomiting, or diarrhea. At present, no frequency or dysuria. There is pain in the left leg. PHYSICAL EXAMINATION: GENERAL: She is an adult woman. She is somewhat obese. She appears nontoxic and is in no acute distress. VITAL SIGNS: Maximum temperature recorded since admission is 99.3 degrees Fahrenheit, most recent temperature 97.9. She is hemodynamically stable. HEENT: There is no pallor. No obvious icterus. No oropharyngeal lesions. NECK: Supple. CHEST: Symmetric. LUNGS: Sound fairly clear. HEART: Sounds are regular without a significant murmur. ABDOMEN: Full, soft, nontender. Bowel sounds are normal. SKIN: There is erythema, warmth and tenderness of the left leg without an obvious ulcer. LABORATORY DATA: Her white count on December 04, 9.3, hemoglobin 14.5, and platelet count 174. Differentials on her white count appear unremarkable. Her serum creatinine 0.7. Test of pandemic coronavirus December 04 is pending. Blood and urine cultures are pending. CT of the abdomen and pelvis is as previously reported. IMPRESSION: This 59-year-old woman has had significant fevers without much leukocytosis. She has acute cellulitis of the left lower extremity. She is also being evaluated for pandemic coronavirus infection. There is concern for urinary tract infection as well, although her urinalysis appears contaminated giving the amount of epithelial cells. I suggest we continue coverage with vancomycin and cefepime. Follow up on her serologies and culture reports. Monitor temperatures, CBC, renal function. I have discussed the findings and treatment with the patient at the bedside. I will discuss the patient with the primary physician whom I thank for the consult and opportunity to participate in the patient's care. MD KODAK Bills/CANDACE /[id number]
[2019-12-06] MEDS: CEFEPIME 1GM/NS 0.9% 50 ML 50 ML IV SCH (21:17)
[2019-12-07] VITALS (8 sets, daily range): BP systolic 105–140; BP diastolic 61–87
[2019-12-07] MEDS: MORPHINE SULFATE INJ 4 MG/ML INJ 1ML IV PRN ×4 (01:25→19:18)
[2019-12-07] MEDS: TRAMADOL HCL 50 MG TAB PO PRN (04:38)
[2019-12-07 06:33] LABS: EOSINOPHILS # (AUTO) 0.1 (0.0-0.4); HEMATOCRIT 38.4 % (34.2-44.1); HEMOGLOBIN 12.4 g/dL (12.0-16.0); LYMPHOCYTES # (AUTO) 1.7 (1.0-3.2); MEAN CORPUSCULAR HEMOGLOBIN 30.2 pg (28-32); MEAN CORPUSCULAR HGB CONC 32.3 g/dL (31-35); MEAN CORPUSCULAR VOLUME 93.4 fL (81-99); MONOCYTES # (AUTO) 0.6 (0.2-0.8); NEUTROPHILS # (AUTO) 2.9 (2.1-6.9); PLATELET COUNT 167 x10e3/uL (140-360); RED BLOOD COUNT 4.11 x10e6/uL (3.6-5.1); RED CELL DISTRIBUTION WIDTH 12.5 % (11.7-14.4)
--- NOTE | 2019-12-07 06:40 | NUR ---
Patient condition throughout thee shift was stable, patient endorsed to next shift for continuity of care.
[2019-12-07 07:01] LABS: ANION GAP 11.6 mmol/L (8-16); BLOOD UREA NITROGEN 8 mg/dL (7-26); BUN/CREATININE RATIO 13 (6-25); CALCIUM 8.6 mg/dL (8.4-10.2); CARBON DIOXIDE 25 mmol/L (22-29); CHLORIDE 107 mmol/L (98-107); CREATININE, SERUM 0.61 mg/dL (0.57-1.11); EST GLOMERULAR FILTRATION RATE > 60 ML/MIN (60-); GLUCOSE 97 mg/dL (74-118); POTASSIUM 3.6 mmol/L (3.5-5.1); SODIUM 140 mmol/L (136-145)
[2019-12-07] MEDS: FAMOTIDINE 20 MG TAB PO SCH ×3 (07:30→16:30)
--- NOTE | 2019-12-07 07:30 | NUR ---
pt in bed resting no s/s discomfort.
[2019-12-07] MEDS: VANCOMYCIN 1GM/NS 250 ML 250 ML IV SCH (08:14)
[2019-12-07] MEDS: GABAPENTIN 300 MG CAP PO SCH ×4 (08:14→21:23)
--- NOTE | 2019-12-07 08:15 | NUR ---
pt c/o dragan xiao medicatesd
[2019-12-07 08:24] LABS: EOSINOPHILS % (MANUAL) 1 % (0-7); LYMPHOCYTES % (MANUAL) 32 % (19-48); MONOCYTES % (MANUAL) 9 % (3.4-9.0); MYELOCYTES % (MANUAL) 1 % (0-0); NEUTROPHILS % (MANUAL) 53 % (40-74); PLATELET ESTIMATE ADEQUATE; PLATELET MORPHOLOGY COMMENT NORMAL; RBC MORPHOLOGY COMMENT NORMAL
[2019-12-07] MEDS: ONDANSETRON HCL INJ 2MG/ML 2ML 2 MG/ML VIAL IV PRN ×3 (09:15→19:18)
[2019-12-07] MEDS ORDERED: CHLORASEPTIC SPRAY 177 ML BTL MM PRN (11:00)
[2019-12-07] MEDS: DOCUSATE SODIUM 100 MG CAP PO PRN (11:11)
--- NOTE | 2019-12-07 13:05 | Progress Note ---
DATE: 12/07/2019 SUBJECTIVE: The patient is alert and responsive. I met her at the bedside. She is eating her lunch. She reports that she had a severe headache at 4:00 a.m. this morning, which has subsided somewhat. She is not coughing much now. No dyspnea at rest. No vomiting. No diarrhea. No other systemic complaints reported except the pain in her left leg. OBJECTIVE: VITAL SIGNS: Maximum temperature in the past 24 hours was up to 99.4 degrees Fahrenheit, most recent temperature is 98.5. GENERAL: She is hemodynamically stable. She has no pallor. There is no icterus. No oropharyngeal lesions. NECK: Supple. CHEST: Symmetric. LUNGS: Clear. HEART: Sounds are regular. There is no new murmur. ABDOMEN: Full, soft, nontender with normal bowel sounds. EXTREMITIES: The erythema of the left leg is resolving. There is stable warmth and tenderness. No obvious ulcers. LABORATORY DATA: Her white count is 5.3, hemoglobin 12.4, platelet count 167. Serum creatinine 0.6. Blood cultures from December 04 showed no growth. Urine culture shows no growth. CT scan of the chest shows no pneumonia. COVID-19 test on December 04, was negative. IMPRESSION: She is on treatment for sepsis present at admission due to acute cellulitis of the left lower extremity. She may have had a urinary tract infection. She received antibiotic treatment prior to admission. She is fairly stable clinically with slow improvement. I suggest continue current antibiotic treatment. Continue to monitor clinical response to treatment. MD KODAK Bills/MODL /[id number]
--- NOTE | 2019-12-07 14:33 | NUR ---
IM- progress note O/N see below ROS: no f/c/s/N/V/D/cp/SOB/dizziness/MALDONADO/skin rash/focal limb weakness v/s revd PE tired anicteric ns1s2 mod bs soft nt nd; left foreleg erythema with warmth and tenderness; no edema at this time skin dry flat affect a&ox3; juarez labe/meds revd A/P: Cellulitis- IV abx UTI- IV abx Transaminitis LINDA- IVF Hypokalemia- replace Obesity- hba1c normal BMI 43- as above Prop; Dispo: 5-18 cont care; improving; continue IV abx; still significant erythema/tenderness of leg; Reji Orr MD, PhD.
[2019-12-07] MEDS ORDERED: DOCUSATE SODIUM 100 MG CAP PO SCH (17:00)
--- NOTE | 2019-12-07 18:12 | NUR ---
DR HOWELL HERE.PT IN BED PAIN LEVEL 2 NO DISTRESS NOTED
--- NOTE | 2019-12-07 19:10 | NUR ---
Bedside shift report received from day rn. pt is alert and oriented x3.Respirations are even and unlabored.cellulitis left lower leg reddened area circled. Tele on. 20 g sl in rt ac. Site healthy. Denies pain. Pt ambulate to bathrrom. Pt reports had BM today. Call light within reach. Bed locked and in low position.
[2019-12-07] MEDS: CEFEPIME 1GM/NS 0.9% 50 ML 50 ML IV SCH (21:23)
[2019-12-08] VITALS (8 sets, daily range): BP systolic 109–125; BP diastolic 53–89
[2019-12-08] MEDS: MORPHINE SULFATE INJ 4 MG/ML INJ 1ML IV PRN ×2 (00:42→21:08)
[2019-12-08] MEDS: VANCOMYCIN 1GM/NS 250 ML 250 ML IV SCH (06:24)
[2019-12-08] MEDS: TRAMADOL HCL 50 MG TAB PO PRN (06:54)
[2019-12-08] MEDS: FAMOTIDINE 20 MG TAB PO SCH ×2 (07:30→16:30)
--- NOTE | 2019-12-08 07:31 | NUR ---
The pt. was received from the off-going nurse in stable condition and siting in the lounger.
--- NOTE | 2019-12-08 08:21 | NUR ---
IM- progress note O/N see below ROS: no f/c/s/N/V/D/cp/SOB/dizziness/MALDONADO/skin rash/focal limb weakness v/s revd PE tired anicteric ns1s2 mod bs soft nt nd; left foreleg erythema with warmth and tenderness; no edema at this time skin dry flat affect a&ox3; juarez labe/meds revd A/P: Cellulitis- IV abx UTI- IV abx Transaminitis LINDA- IVF Hypokalemia- replace Obesity- hba1c normal BMI 43- as above Prop; Dispo: 5-18 cont care; improving; continue IV abx; still significant erythema/tenderness of leg; 5-19 cont IV abx; Reji Orr MD, PhD.
[2019-12-08] MEDS: GABAPENTIN 300 MG CAP PO SCH ×4 (09:21→21:00)
--- NOTE | 2019-12-08 14:34 | Progress Note ---
DATE: 12/08/2019 SUBJECTIVE: The patient is alert and responsive. I met her in the bedside chair. She is still complaining of headaches at night. No nausea, vomiting, or diarrhea. She is tolerating oral intakes. OBJECTIVE: VITAL SIGNS: Maximum temperature in the past 24 hours up to 99 degrees Fahrenheit. GENERAL: She is hemodynamically stable. She is obese. She has no gross pallor. HEENT: No obvious icterus. No oropharyngeal lesions. NECK: Supple. CHEST: Symmetric. LUNGS: Sound clear. HEART: Sounds are regular. There is no new murmur. ABDOMEN: Soft. Bowel sounds are present. The erythema of the left lower extremity is slowly resolving. There is stable warmth and mild tenderness. No obvious ulcers. LABORATORY DATA: Her white count on December 07, 2019 is 5.3, hemoglobin 12.4, platelet count 167. Serum creatinine 0.6. Blood cultures are negative from December 05, 2019. Urine culture is negative. ASSESSMENT AND PLAN: She is on treatment for sepsis with acute cellulitis of the left lower extremity present at admission. She may have had a urinary tract infection. She is currently afebrile. No leukocytosis. I suggest if she remains afebrile and stable in the next 12-24 hours, she could be discharged home on doxycycline 100 mg p.o. b.i.d. for 10 more days of treatment with close outpatient followup. MD KODAK Bills/CANDACE /[id number]
[2019-12-08] MEDS ORDERED: TRAMADOL HCL 50 MG TAB PO PRN (19:15)
--- NOTE | 2019-12-08 19:25 | NUR ---
Patient received lying in bed. AAO x 4. Patient had no complaints of pain. Respirations even and non-labored. Safety measures in place. Patient instructed to call for assistance when needed. Call light within reach.
[2019-12-08] MEDS: CEFEPIME 1GM/NS 0.9% 50 ML 50 ML IV SCH (21:00)
[2019-12-09] VITALS: BP 120/62
[2019-12-09] MEDS: VANCOMYCIN 1GM/NS 250 ML 250 ML IV SCH (06:35)
--- NOTE | 2019-12-09 07:00 | NUR ---
Patient resting comfortably. No acute distress noted. Walking rounds done. BSSR given to oncoming nurse.
--- NOTE | 2019-12-09 07:15 | NUR ---
The pt. was received with no iv access and vancomycin pending. Iv restarted nd med infusing. The pt. will discharge today.
[2019-12-09] MEDS ORDERED: GABAPENTIN300 MG PO (07:18)
--- NOTE | 2019-12-09 07:19 | NUR ---
D/C Summary Principal Dx: Cellulitis- IV abx UTI- IV abx Transaminitis LINDA- IVF Hypokalemia- replace Secondary Dx: Obesity- hba1c normal BMI 43- as above Prop; Dispo: 5-18 cont care; improving; continue IV abx; still significant erythema/tenderness of leg; 5-19 cont IV abx; Hba1c 5.4 d/c home on antibiotics f/u pcp 1 week stable d/c>35mins Reji Orr MD, PhD.
[2019-12-09] MEDS ORDERED: DOXYCYCLINE HY100 MG PO (07:20)
[2019-12-09] MEDS: FAMOTIDINE 20 MG TAB PO SCH (07:30)
[2019-12-09 07:48] VITALS: BP 104/84
[2019-12-09] MEDS: GABAPENTIN 300 MG CAP PO SCH (08:43)
[2019-12-09] MEDS: TRAMADOL HCL 50 MG TAB PO PRN (08:44)
[2019-12-09 08:45] VITALS: BP 104/84
[2019-12-09] MEDS ORDERED: ONDANSETRON HCL 4 MG ORAL DISINTEGRATING TAB PO PRN (09:00)
--- NOTE | 2019-12-09 10:20 | NUR ---
Pt unavailable at this time. Will follow up as able. ARLET SILVERMAN [facility] O: [phone]
--- NOTE | 2019-12-09 10:47 | NUR ---
The pt. was escorted to private car via w/c and placed into the care of her daughter. Scripts and follolw up information provided.
--- NOTE | 2019-12-09 13:04 | Progress Note ---
DATE: 12/09/2019 SUBJECTIVE: The patient is fairly stable. She is in no acute distress. She has no new systemic complaints. No adverse medication reaction reported. OBJECTIVE: VITAL SIGNS: In the past 24 hours, she had temperatures up to 98.9 degrees Fahrenheit. Her most recent temperature 98.1. GENERAL: She is hemodynamically stable. She has no pallor. There is no icterus. No oropharyngeal lesions. NECK: Supple. CHEST: Symmetric. LUNGS: Clear. HEART: Sounds are regular. There is no new murmur. ABDOMEN: Soft, nontender. Bowel sounds are normal. EXTREMITIES: There is no acute erythema. The erythema of her left lower extremity is resolving. LABORATORY DATA: Her white count on 12/06 was 5.3, hemoglobin 12.4, platelet count 167. Serum creatinine 0.6. There are no new positive culture reports. IMPRESSION: She is on treatment for acute cellulitis of the left lower extremity, which is resolving. She is stable from an infectious disease point. She can be discharged on doxycycline as previously suggested to continue follow up on an outpatient basis. MD KODAK Bills/CANDACE /[id number]
== END 2019-12-09 10:33 | disposition home or self-care (01) | DRG 690 ==
LOC: ER 12:17 → ERHOLD 14:35 → MED/SURG3 20:47
PROVIDERS: ADMIT Internal Medicine; ATTEND Internal Medicine
DX: N39.0 Urinary tract infection, site not specified (principal); L03.116 Cellulitis of left lower limb; Z68.41 Body mass index [BMI] 40.0-44.9, adult; N17.9 Acute kidney failure, unspecified; E66.01 Morbid (severe) obesity due to excess calories; E87.6 Hypokalemia; R74.0 Nonspecific elevation of levels of transaminase and lactic acid dehydrogenase [LDH]; Z11.59 Encounter for screening for other viral diseases
CPT/HCPCS: 36415; 71250; 74177; 80048; 80053; 80061; 80202; 81001; 82728; 83036; 83605; 83615; 85007; 85025; 85027; 85379; 85384; 86140; 87040; 87086; 87635; 99284; J0692; J2270; J2405; J3370; J7030; Q9967

== ENCOUNTER 2021-04-24 16:14 | Inpatient (IN) | payer BC, MEDICARE ==
[~2021-04-24] VITALS: Ht 160 cm; Wt 118.9 kg
[~2021-04-24 16:14] MED LIST changes: +DOXYCYCLINE HY100 MG PO; +GABAPENTIN300 MG PO
[2021-04-24] MEDS ORDERED: PIPERACILLIN/TAZOBACTAM 3.375 GM in SODIUM CHLORIDE 0.9% 50ML 50 ML IV STA (16:40)
[2021-04-24] MEDS ORDERED: Vancomycin IV 500 MG in SODIUM CHLORIDE 0.9% 100 ML IV STA (16:51)
[2021-04-24] MEDS: ONDANSETRON HCL INJ 2MG/ML 2ML 2 MG/ML VIAL IV PRN (17:20)
[2021-04-24] MEDS: MORPHINE SULFATE INJ 4 MG/ML INJ 1ML IV PRN ×2 (17:20→22:24)
[2021-04-24] MEDS ORDERED: MORPHINE SULFATE INJ 4 MG/ML INJ 1ML ONE (17:26)
[2021-04-24] MEDS ORDERED: ONDANSETRON HCL INJ 2MG/ML 2ML 2 MG/ML VIAL ONE (17:26)
[2021-04-24] MEDS ORDERED: Vancomycin IV 1 GM VIAL ONE (17:27)
[2021-04-24] MEDS ORDERED: SODIUM CHLORIDE 0.9% 100 ML ONE (17:27)
[2021-04-24 20:00] VITALS: BP 127/57
[2021-04-24 21:00] VITALS: BP 127/57
[2021-04-24] MEDS ORDERED: MELOXICAM7.5 MG PO ×2 (21:34→21:45)
[2021-04-24] MEDS ORDERED: GABAPENTIN400 MG PO (21:34)
[2021-04-24] MEDS ORDERED: PREDNISONE5 MG/5 ML PO (21:34)
[2021-04-24] MEDS ORDERED: ERGOCALCIFEROL1 GM PO (21:34)
[2021-04-24] MEDS ORDERED: CYCLOBENZAPRINE10 MG PO (21:34)
[2021-04-24] MEDS ORDERED: ULTRAM50 MG PO (21:34)
[2021-04-24 22:00] VITALS: BP 127/57
[2021-04-24] MEDS: CYCLOBENZAPRINE HCL 10 MG TAB PO SCH (22:27)
[2021-04-24] MEDS: GABAPENTIN 300 MG CAP PO SCH (22:28)
[2021-04-24] MEDS: MELOXICAM 7.5 MG TAB PO SCH (22:28)
[2021-04-24] MEDS: TRAMADOL HCL 50 MG TAB PO PRN (22:30)
[2021-04-25] VITALS (8 sets, daily range): BP systolic 105–131; BP diastolic 55–98
[2021-04-25] MEDS ORDERED: TRAMADOL HCL 50 MG TAB PO SCH
[2021-04-25] MEDS: MORPHINE SULFATE INJ 4 MG/ML INJ 1ML IV PRN ×3 (01:22→11:10)
[2021-04-25] MEDS: ONDANSETRON HCL INJ 2MG/ML 2ML 2 MG/ML VIAL IV PRN (05:09)
[2021-04-25 07:39] LABS: BASOPHILS # (AUTO) 0.1 (0.0-0.1); BASOPHILS % 0.7 % (0.0-1.0); EOSINOPHILS # (AUTO) 0.2 (0.0-0.4); EOSINOPHILS % 3.1 % (0.0-6.0); HEMATOCRIT 45.4 % (34.2-44.1); HEMOGLOBIN 14.3 g/dL (12.0-16.0); LYMPHOCYTES # (AUTO) 1.9 (1.0-3.2); LYMPHOCYTES % 27.6 % (18.0-39.1); MEAN CORPUSCULAR HEMOGLOBIN 30.6 pg (28-32); MEAN CORPUSCULAR HGB CONC 31.5 g/dL (31-35); MEAN CORPUSCULAR VOLUME 97.2 fL (81-99); MONOCYTES # (AUTO) 0.6 (0.2-0.8); NEUTROPHILS # (AUTO) 4.2 (2.1-6.9); NEUTROPHILS % 59.3 % (38.7-80.0); PLATELET COUNT 143 x10e3/uL (140-360); RED BLOOD COUNT 4.67 x10e6/uL (3.6-5.1); RED CELL DISTRIBUTION WIDTH 12.5 % (11.7-14.4)
[2021-04-25 07:59] LABS: ALBUMIN 3.1 g/dL (3.5-5.0); ALBUMIN/GLOBULIN RATIO 0.8 (0.8-2.0); ANION GAP 13.9 mmol/L (8-16); CALCIUM 8.9 mg/dL (8.4-10.2); CREATININE, SERUM 0.64 mg/dL (0.57-1.11); POTASSIUM 3.9 mmol/L (3.5-5.1)
[2021-04-25] MEDS: GABAPENTIN 300 MG CAP PO SCH ×3 (08:45→20:02)
[2021-04-25] MEDS: TRAMADOL HCL 50 MG TAB PO PRN ×2 (08:52→18:55)
[2021-04-25] MEDS ORDERED: DOCUSATE SODIUM 100 MG CAP PO PRN (10:15)
[2021-04-25] MEDS ORDERED: ACETAMINOPHEN 325 MG TAB PO PRN (10:15)
[2021-04-25 10:35] LABS: CHOL/HDL RATIO 3.9 (3.0-3.6)
[2021-04-25] MEDS ORDERED: ACETAMIN/BUTALBITAL/CAFFEINE TAB PO PRN (11:15)
[2021-04-25] MEDS ORDERED: AZTREONAM (AZACTAM) 1 GM in SODIUM CHLORIDE 0.9% 50ML 50 ML IV SCH (12:00)
[2021-04-25] MEDS ORDERED: PIPERACILLIN/TAZOBACTAM 3.375 GM in SODIUM CHLORIDE 0.9% 50ML 50 ML IV SCH (12:00)
[2021-04-25] MEDS ORDERED: AZTREONAM (AZACTAM) 0.5 GM in SODIUM CHLORIDE 0.9% 50ML 50 ML IV SCH (13:00)
[2021-04-25] MEDS: CLINDAMYCIN 300MG 50 ML IV SCH ×2 (15:07→22:06)
[2021-04-25] MEDS: ENOXAPARIN SOD INJ 40 MG/0.4 ML SYR SC SCH (18:05)
[2021-04-25] MEDS: CYCLOBENZAPRINE HCL 10 MG TAB PO SCH (20:02)
[2021-04-25] MEDS: MELOXICAM 7.5 MG TAB PO SCH (20:02)
[2021-04-25] MEDS: MELATONIN 5 MG TABLET PO SCH (22:06)
[2021-04-26] VITALS (8 sets, daily range): BP systolic 93–137; BP diastolic 73–87
[2021-04-26] MEDS: CLINDAMYCIN 300MG 50 ML IV SCH ×3 (05:14→21:03)
[2021-04-26] MEDS: GABAPENTIN 300 MG CAP PO SCH ×3 (08:42→21:03)
[2021-04-26] MEDS: TRAMADOL HCL 50 MG TAB PO PRN ×3 (09:33→23:01)
[2021-04-26] MEDS ORDERED: SODIUM CHLORIDE 0.9% 250ML 250 ML ONE (14:21)
[2021-04-26] MEDS: ENOXAPARIN SOD INJ 40 MG/0.4 ML SYR SC SCH (17:05)
[2021-04-26] MEDS: CYCLOBENZAPRINE HCL 10 MG TAB PO SCH (21:03)
[2021-04-26] MEDS: MELOXICAM 7.5 MG TAB PO SCH (21:03)
[2021-04-26] MEDS: MELATONIN 5 MG TABLET PO SCH (21:03)
[2021-04-27 01:13] VITALS: BP 119/68
[2021-04-27 04:43] VITALS: BP 105/46
[2021-04-27] MEDS: CLINDAMYCIN 300MG 50 ML IV SCH (06:10)
[2021-04-27 07:49] VITALS: BP 117/73
[2021-04-27 08:22] VITALS: BP 117/73
[2021-04-27] MEDS: TRAMADOL HCL 50 MG TAB PO PRN (08:56)
[2021-04-27] MEDS: GABAPENTIN 300 MG CAP PO SCH (09:01)
[2021-04-27 09:14] LABS: BASOPHILS # (AUTO) 0.1 (0.0-0.1); BASOPHILS % 0.8 % (0.0-1.0); EOSINOPHILS # (AUTO) 0.3 (0.0-0.4); EOSINOPHILS % 3.5 % (0.0-6.0); HEMATOCRIT 46.4 % (34.2-44.1); HEMOGLOBIN 14.8 g/dL (12.0-16.0); LYMPHOCYTES # (AUTO) 2.6 (1.0-3.2); LYMPHOCYTES % 35.5 % (18.0-39.1); MEAN CORPUSCULAR HEMOGLOBIN 30.1 pg (28-32); MEAN CORPUSCULAR HGB CONC 31.9 g/dL (31-35); MEAN CORPUSCULAR VOLUME 94.5 fL (81-99); MONOCYTES # (AUTO) 0.4 (0.2-0.8); MONOCYTES % 5.2 % (4.4-11.3); NEUTROPHILS # (AUTO) 3.7 (2.1-6.9); NEUTROPHILS % 50.5 % (38.7-80.0); PLATELET COUNT 273 x10e3/uL (140-360); RED BLOOD COUNT 4.91 x10e6/uL (3.6-5.1); RED CELL DISTRIBUTION WIDTH 12.4 % (11.7-14.4)
[2021-04-27 09:46] LABS: ANION GAP 15.4 mmol/L (8-16); CALCIUM 8.9 mg/dL (8.4-10.2); CREATININE, SERUM 0.77 mg/dL (0.57-1.11); POTASSIUM 3.4 mmol/L (3.5-5.1)
[2021-04-27] MEDS ORDERED: CLINDAMYCIN HC150 MG PO (10:06)
[2021-04-27 11:11] VITALS: BP 116/66
[2021-04-27] MEDS ORDERED: POTASSIUM CHLORIDE 20 MEQ TAB CR PO ONE (11:30)
== END 2021-04-27 11:40 | disposition home or self-care (01) | DRG 603 ==
LOC: FSED 16:30 → ERHOLD 17:18 → MED/SURG3 20:09
PROVIDERS: ADMIT Internal Medicine; ATTEND Internal Medicine
DX: L03.116 Cellulitis of left lower limb (principal); Z68.42 Body mass index [BMI] 45.0-49.9, adult; L97.429 Non-pressure chronic ulcer of left heel and midfoot with unspecified severity; E66.01 Morbid (severe) obesity due to excess calories; I10 Essential (primary) hypertension; Z88.0 Allergy status to penicillin; Z91.018 Allergy to other foods; Z98.84 Bariatric surgery status; Z20.822 Contact with and (suspected) exposure to COVID-19
CPT/HCPCS: 36415; 80048; 80053; 80061; 83036; 85025; 93971; 99251; 99284; J1650; J2270; J2405; J2543; J3370; J7050; U0002

== ENCOUNTER 2022-03-07 02:28 | Emergency (ER) | payer BC, MEDICARE ==
[~2022-03-07] VITALS: Ht 160 cm; Wt 117.0 kg
[~2022-03-07 02:28] MED LIST changes: +CLINDAMYCIN HC150 MG PO; +CYCLOBENZAPRINE10 MG PO; +ERGOCALCIFEROL1 GM PO; +GABAPENTIN400 MG PO; +MELOXICAM7.5 MG PO; +PREDNISONE5 MG/5 ML PO; +ULTRAM50 MG PO
[2022-03-07] MEDS ORDERED: Vancomycin IV 1.5 GM in SODIUM CHLORIDE 0.9% 250ML 250 ML IV ONE (03:00)
[2022-03-07] MEDS ORDERED: CEFTRIAXONE 1 GM VIAL IV ONE (03:00)
[2022-03-07] MEDS ORDERED: IBUPROFEN200 MG PO (03:38)
[2022-03-07] MEDS ORDERED: DOXYCYCLINE HY100 MG PO (03:38)
[2022-03-07] MEDS ORDERED: CLEOCIN HCL300 MG PO (03:38)
[2022-03-07] MEDS ORDERED: PROBIOTIC & AC1 EACH PO (03:38)
[2022-03-07] MEDS ORDERED: CLINDAMYCIN 600MG / 50ML 50 ML IV ONE (03:39)
[2022-03-07] MEDS ORDERED: Clindamycin INJ 300 MG/50 ML 50 ML IV ONE (03:39)
[2022-03-07 04:09] VITALS: BP 161/90
== END 2022-03-07 04:09 | disposition home or self-care (01) ==
LOC: FSED 02:34
DX: L03.116 Cellulitis of left lower limb (principal); I10 Essential (primary) hypertension; J45.909 Unspecified asthma, uncomplicated; E66.01 Morbid (severe) obesity due to excess calories; M54.9 Dorsalgia, unspecified; G89.29 Other chronic pain
CPT/HCPCS: 81003; 96365; 99283

== ENCOUNTER → 2023-01-08 | Day surgery (SDC) | payer BC, MEDICARE ==
[~2023-01-08] MED LIST changes: +BACTRIM DS TAB1 EACH PO; +BUPIVACAINE HCL 0.5% 10ML MPF VIAL INJ ONE; +CLEOCIN HCL300 MG PO; +CLINDAMYCIN 600MG / 50ML 50 ML IV ONE; +DEXAMETHASONE SOD PHOS INJ 4 MG/ML SDV ONE; +FENTANYL CITRATE/PF 100MCG/2 ML INJ ONE; +IBUPROFEN200 MG PO; +LACTATED RINGER'S 1,000 ML ONE; +LIDOCAINE HCL 2% LOCAL INJ 5 ML SDV VIAL INJ ONE; +LYRICA50 MG PO; +MUPIROCIN 2% OINT 22 GM TUBE ONE; +ONDANSETRON HCL INJ 2MG/ML 2ML 2 MG/ML VIAL ONE; +PANTOPRAZOLE SO20 MG PO; +POVIDONE IODINE 0.05% 0.05 % ML PO ONE; +PROBIOTIC & AC1 EACH PO; +PROPOFOL IV EMULSION 10 MG/ML 20 ML VIAL ONE; +SEVOFLURANE INHAL SOLN 250 ML PEN BTL ONE; +TYLENOL #3 PO; +URSODIOL300 MG PO
[2023-01-08 08:10] VITALS: BP 128/97; PULSE 70; RESP 16; O2SAT 97
== END | disposition home or self-care (01) ==
LOC: OR 05:28 → EDSTATUS 07:00
PROVIDERS: ATTEND Plastic Surgery
DX: M65.331 Trigger finger, right middle finger (principal); E03.9 Hypothyroidism, unspecified; K21.9 Gastro-esophageal reflux disease without esophagitis; K75.9 Inflammatory liver disease, unspecified; Z88.0 Allergy status to penicillin; Z01.810 Encounter for preprocedural cardiovascular examination; Z79.1 Long term (current) use of non-steroidal anti-inflammatories (NSAID); Z79.899 Other long term (current) drug therapy
CPT/HCPCS: 26055; 93005; J1100; J2001; J2405; J2704; J3010; J7121

== ENCOUNTER 2024-07-31 10:01 | Emergency (ER) | payer MEDICARE ==
[~2024-07-31] VITALS: Ht 160 cm; Wt 117.0 kg
[~2024-07-31 10:01] MED LIST changes: -BUPIVACAINE HCL 0.5% 10ML MPF VIAL INJ ONE; -CLINDAMYCIN 600MG / 50ML 50 ML IV ONE; -DEXAMETHASONE SOD PHOS INJ 4 MG/ML SDV ONE; -FENTANYL CITRATE/PF 100MCG/2 ML INJ ONE; -LACTATED RINGER'S 1,000 ML ONE; -LIDOCAINE HCL 2% LOCAL INJ 5 ML SDV VIAL INJ ONE; -MUPIROCIN 2% OINT 22 GM TUBE ONE; -ONDANSETRON HCL INJ 2MG/ML 2ML 2 MG/ML VIAL ONE; -POVIDONE IODINE 0.05% 0.05 % ML PO ONE; -PROPOFOL IV EMULSION 10 MG/ML 20 ML VIAL ONE; -SEVOFLURANE INHAL SOLN 250 ML PEN BTL ONE
[2024-07-31 10:32] VITALS: TEMP 98.3
[2024-07-31 10:52] LABS: BASOPHILS # (AUTO) 0.1 (0.0-0.1); BASOPHILS % 0.4 % (0.0-1.0); EOSINOPHILS # (AUTO) 0.1 (0.0-0.4); EOSINOPHILS % 0.6 % (0.0-6.0); HEMATOCRIT 47.7 % (34.2-44.1); HEMOGLOBIN 14.4 g/dL (12.0-16.0); LYMPHOCYTES # (AUTO) 1.2 (1.0-3.2); LYMPHOCYTES % 10.4 % (18.0-39.1); MEAN CORPUSCULAR HEMOGLOBIN 29.4 pg (28-32); MEAN CORPUSCULAR HGB CONC 30.2 g/dL (31-35); MEAN CORPUSCULAR VOLUME 97.5 fL (81-99); MONOCYTES # (AUTO) 0.6 (0.2-0.8); NEUTROPHILS # (AUTO) 9.4 (2.1-6.9); NEUTROPHILS % 83.2 % (38.7-80.0); PLATELET COUNT 291 x10e3/uL (140-360); RED BLOOD COUNT 4.89 x10e6/uL (3.6-5.1); RED CELL DISTRIBUTION WIDTH 13.2 % (11.7-14.4); WHITE BLOOD COUNT 11.34 x10e3/uL (4.8-10.8)
[2024-07-31] MEDS: VANCOMYCIN 1.25GM/250 ML (PEG) 250 ML IV ONE (11:02)
[2024-07-31 11:11] LABS: INR 0.92; PROTHROMBIN TIME 12.9 seconds (11.9-14.5)
[2024-07-31 11:12] LABS: PARTIAL THROMBOPLASTIN TIME 32.6 seconds (23.8-35.5)
[2024-07-31 11:19] LABS: ALBUMIN 3.9 g/dL (3.5-5.0); ALBUMIN/GLOBULIN RATIO 1.1 (0.8-2.0); ANION GAP 18.7 mmol/L (8-16); BILIRUBIN,TOTAL 0.8 mg/dL (0.2-1.2); CALCIUM 9.5 mg/dL (8.4-10.2); CREATININE, SERUM 1.23 mg/dL (0.57-1.11); POTASSIUM 3.7 mmol/L (3.5-5.1); TOTAL PROTEIN 7.3 g/dL (6.5-8.1)
[2024-07-31] MEDS: CEFEPIME 2 GM in SODIUM CHLORIDE 0.9% 100 ML IV ONE (11:36)
[2024-07-31] MEDS ORDERED: CEFUROXIME500 MG PO (11:48)
[2024-07-31] MEDS ORDERED: DOXYCYCLINE HY100 MG PO (11:48)
[2024-07-31 12:33] VITALS: PULSE 77; RESP 18; O2SAT 98
== END 2024-07-31 13:05 | disposition home or self-care (01) ==
LOC: ER 10:29
DX: L03.116 Cellulitis of left lower limb (principal); N28.9 Disorder of kidney and ureter, unspecified; I10 Essential (primary) hypertension; K21.9 Gastro-esophageal reflux disease without esophagitis; J45.909 Unspecified asthma, uncomplicated; E66.01 Morbid (severe) obesity due to excess calories
CPT/HCPCS: 36415; 80053; 85025; 85610; 85730; 87040; 99284; J0692; J7050

== ENCOUNTER → 2025-01-08 | Day surgery (SDC) | payer MEDICARE ==
[2025-01-05 12:06] LABS: BASOPHILS # (AUTO) 0.1 (0.0-0.1); BASOPHILS % 0.8 % (0.0-1.0); EOSINOPHILS # (AUTO) 0.3 (0.0-0.4); EOSINOPHILS % 4.3 % (0.0-6.0); HEMATOCRIT 40.7 % (34.2-44.1); HEMOGLOBIN 12.1 g/dL (12.0-16.0); LYMPHOCYTES # (AUTO) 1.8 (1.0-3.2); LYMPHOCYTES % 29.4 % (18.0-39.1); MEAN CORPUSCULAR HEMOGLOBIN 26.9 pg (28-32); MEAN CORPUSCULAR HGB CONC 29.7 g/dL (31-35); MEAN CORPUSCULAR VOLUME 90.6 fL (81-99); MONOCYTES # (AUTO) 0.5 (0.2-0.8); MONOCYTES % 7.9 % (4.4-11.3); NEUTROPHILS # (AUTO) 3.4 (2.1-6.9); NEUTROPHILS % 57.4 % (38.7-80.0); PLATELET COUNT 456 x10e3/uL (140-360); RED BLOOD COUNT 4.49 x10e6/uL (3.6-5.1); RED CELL DISTRIBUTION WIDTH 14.7 % (11.7-14.4); WHITE BLOOD COUNT 5.98 x10e3/uL (4.8-10.8)
[2025-01-05 12:16] LABS: INR 0.83; PROTHROMBIN TIME 12.2 seconds (11.9-14.5)
[2025-01-05 12:42] LABS: ALBUMIN 3.5 g/dL (3.5-5.0); ALBUMIN/GLOBULIN RATIO 0.9 (0.8-2.0); BILIRUBIN,TOTAL 0.3 mg/dL (0.2-1.2); CALCIUM 9.4 mg/dL (8.4-10.2); CREATININE, SERUM 1.08 mg/dL (0.57-1.11); TOTAL PROTEIN 7.5 g/dL (6.5-8.1)
[~2025-01-08] MED LIST changes: +CEFUROXIME500 MG PO; +DEXAMETHASONE SOD PHOS INJ 4 MG/ML SDV ONE; +FAMOTIDINE 20 MG/2 ML VIAL IV ONE; +FAMOTIDINE20 MG PO; +FENOFIBRATE134 MG PO; +FENTANYL CITRATE/PF 100MCG/2 ML INJ ONE; +LIDOCAINE HCL 2% LOCAL INJ 5 ML SDV VIAL INJ ONE; +MECLIZINE HCL12.5 MG PO; +MIDAZOLAM HCL 2 MG/2 ML VIAL ONE; +ONDANSETRON HCL INJ 2MG/ML 2ML 2 MG/ML VIAL ONE; +OXYBUTYNIN CHLOR5 MG PO; +PENTOXIFYLLINE400 MG PO; +PHENYLEPHRINE HCL 1% 10 MG/ML VIAL ONE; +PROPOFOL IV EMULSION 10 MG/ML 20 ML VIAL ONE; +SEVOFLURANE INHAL SOLN 250 ML PEN BTL ONE
[2025-01-08] MEDS: LACTATED RINGER'S 1,000 ML ONE (06:06)
[2025-01-08] MEDS: SODIUM CHLORIDE 0.9% 250ML 250 ML ONE (06:06)
[2025-01-08] MEDS: Vancomycin IV 1 GM VIAL ONE (06:07)
[2025-01-08 10:05] VITALS: BP 118/83; PULSE 74; RESP 16; O2SAT 96
== END | disposition home or self-care (01) ==
LOC: OR 05:23
PROVIDERS: ATTEND Podiatrist Foot Surgery
DX: M20.41 Other hammer toe(s) (acquired), right foot (principal); I10 Essential (primary) hypertension; E66.01 Morbid (severe) obesity due to excess calories; E78.5 Hyperlipidemia, unspecified; K75.4 Autoimmune hepatitis; K21.9 Gastro-esophageal reflux disease without esophagitis; M06.9 Rheumatoid arthritis, unspecified; Z88.0 Allergy status to penicillin; Z01.810 Encounter for preprocedural cardiovascular examination; Z01.812 Encounter for preprocedural laboratory examination; Z01.818 Encounter for other preprocedural examination; Z79.1 Long term (current) use of non-steroidal anti-inflammatories (NSAID); Z79.899 Other long term (current) drug therapy
CPT/HCPCS: 36415; 71046; 80053; 85025; 85610; 85730; 93005; C1713; J1100; J1308; J2003; J2250; J2371; J2405; J7050